=== PATIENT | male | born 1970 | race Caucasian/White ===

== ENCOUNTER 2016-10-01 10:34 | Emergency (ER) | payer BC ==
[2016-10-01 10:50] LABS: Glucose,Whole Blood 110 mg/dL (75-99)
[2016-10-01 11:15] LABS: Basophils # (A) 0.1 k/uL (0-0.2); Basophils % (A) 1 %; CH 31.2; CHCM 35.1; Eosinophils # (A) 0.3 k/uL (0-0.7); Eosinophils % (A) 5 %; HCT 46.3 % (39.0-53.0); HDW 2.97; HGB 16.7 gm/dL (13.0-17.5); Luc # (Auto) 0.26; Luc % (Auto) 4; Lymphocytes % (A) 30 %; MCH 32.1 pg (25.0-35.0); MCV 89.3 fL (80.0-100.0); Mean Platelet Volume 6.7; Monocytes # (A) 0.4 k/uL (0-1.0); Monocytes % (A) 6 %; Neutrophils # (A) 3.6 k/uL (1.3-7.7); Neutrophils % (A) 54 %; RBC 5.18 m/uL (4.30-5.90); WBC 6.7 k/uL (3.8-10.6); WBC (Perox) 6.61
[2016-10-01] MEDS ORDERED: methylPREDNISolone SOD SUCCI 125 MG/2 ML VIAL IV STA (11:15)
--- NOTE | 2016-10-01 11:15 | ED ---
General Adult HPI - General Chief complaint: Neuro Symptoms/Deficit Stated complaint: left leg numbness, heavyness Time Seen by Provider: 10/01/16 10:44 Source: patient Mode of arrival: wheelchair Limitations: no limitations - History of Present Illness Initial comments: This 45-year-old white male presents with a complaint of some left leg numbness and weakness. He states that this started approximately 2 days ago. He states that it initially started with numbness. He now is having to drag his left leg as it is weak and it is difficult for him to ambulate. He has had occasional back stiffness but no severe pain. He states that his right leg is felt somewhat numb minimally at times but nothing like the left leg. He denies any actual injuries. He denies any previous similar incidents. He denies any previous back or neck issues. He denies any bowel or bladder abnormalities. No fevers or chills. No other complaints or modifying factors. He did see his chiropractor this morning and was sent to the ER for further evaluation. He denies any problems with any upper extremity numbness or weakness. - Related Data Home Medications Medication Instructions Recorded Confirmed Atorvastatin [Lipitor] 10 mg PO DAILY 10/01/16 10/01/16 Loratadine [Claritin] 10 mg PO DAILY 10/01/16 10/01/16 Previous Rx's Medication Instructions Recorded Hydrocodone/Acetaminophen [Caney 1 - 2 each PO Q4HR PRN #20 tab 10/01/16 5-325] predniSONE 20 mg PO TID #15 tab 10/01/16 Allergies Allergy/AdvReac Type Severity Reaction Status Date / Time No Known Allergies Allergy Unverified 10/01/16 11:50 Review of Systems ROS Statement: Those systems with pertinent positive or pertinent negative responses have been documented in the HPI. ROS Other: All systems not noted in ROS Statement are negative. Past Medical History Past Medical History: Hyperlipidemia History of Any Multi-Drug Resistant Organisms: None Reported Past Surgical History: Ear Surgery, Orthopedic Surgery Additional Past Surgical History / Comment(s): vascectomy, toe surg Past Psychological History: No Psychological Hx Reported Smoking Status: Never smoker Past Alcohol Use History: Occasional Past Drug Use History: None Reported General Exam - General Exam Comments Initial Comments: GENERAL: The patient is well nourished and well hydrated. VITAL SIGNS: Heart rate, blood pressure, respiratory rate reviewed as recorded in nurse's notes. EYES: Pupils are round and reactive. Extraocular movements are intact. No conjunctival / lid redness or swelling. ENT: No external evidence of injury, swelling, or ecchymosis. Airway is patent. Throat is clear. NECK: Nontender. No swelling or evidence of injury. No subcutaneous emphysema. Trachea is midline. No thyroid mass. HEART: Regular rate and rhythm. Good peripheral pulses. LUNGS/CHEST: Breath sounds clear and equal bilaterally. No rales, rhonchi, or wheezes. No ecchymosis, subcutaneous emphysema, or tenderness. ABDOMEN: Abdomen soft without tenderness. No palpable masses or organomegaly. No peritoneal signs. No abdominal wall swelling or ecchymosis. EXTREMITIES: No extremity tenderness or swelling. No thoracolumbar tenderness. There is weakness noted to the left lower extremity. He can only minimally raise his left leg off the bed. There is decreased strength for the foot. There is subjective numbness to his left lower extremity. Strength is intact to upper extremities. NEUROLOGIC: Sensation is grossly intact. Cranial nerve exam reveals face is symmetrical, tongue is midline, speech is clear. SKIN: No abrasions or ecchymosis is noted. No induration or masses noted. PSYCHIATRIC: Alert and oriented. Appropriate behavior and judgment. Limitations: no limitations Course Vital Signs 10/01/16 10/01/16 10/01/16 10:46 10:50 13:01 Temperature 98 F 97.4 F L Pulse Rate 75 73 72 Respiratory 16 16 16 Rate Blood Pressure 130/77 130/77 114/66 O2 Sat by Pulse 99 100 98 Oximetry 10/01/16 10/01/16 14:05 15:34 Temperature 97.9 F 98.3 F Pulse Rate 75 72 Respiratory 18 18 Rate Blood Pressure 111/67 116/59 O2 Sat by Pulse 96 94 L Oximetry Medical Decision Making - Medical Decision Making The patient was seen and examined. All diagnostics are reviewed. Laboratories essentially within normal limits. The MRI of the lumbar spine does show multilevel degenerative changes. There also is evidence of a herniated disc at the L4-L5 region which could be accounting for the patient's symptomatology. Please see report for details. He is given some Solu-Medrol intravenously. Overall, it is felt as though he is stable for discharge. He does have an appointment with a physician at [facility] this Tuesday for evaluation of his back. He states that they apparently do specialize in the back. Our back specialist is apparently currently out of town but will be back this next week. It is felt as though he benefit from continued steroid medication and also will be covered for pain. Return parameters are discussed and he leaves in no apparent distress. - Lab Data Result diagrams: 10/01/16 10:50 10/01/16 10:50 Lab Results 10/01/16 10/01/16 10/01/16 Range/Units 10:48 10:50 10:50 WBC 6.7 (3.8-10.6) k/uL RBC 5.18 (4.30-5.90) m/uL Hgb 16.7 (13.0-17.5) gm/dL Hct 46.3 (39.0-53.0) % MCV 89.3 (80.0-100.0) fL MCH 32.1 (25.0-35.0) pg MCHC 36.0 (31.0-37.0) g/dL RDW 14.0 (11.5-15.5) % Plt Count 199 (150-450) k/uL Neutrophils % 54 % Lymphocytes % 30 % Monocytes % 6 % Eosinophils % 5 % Basophils % 1 % Neutrophils # 3.6 (1.3-7.7) k/uL Lymphocytes # 2.0 (1.0-4.8) k/uL Monocytes # 0.4 (0-1.0) k/uL Eosinophils # 0.3 (0-0.7) k/uL Basophils # 0.1 (0-0.2) k/uL PT (9.0-12.0) sec INR (<1.1) APTT (22.0-30.0) sec Sodium 143 (137-145) mmol/L Potassium 4.6 (3.5-5.1) mmol/L Chloride 108 H (98-107) mmol/L Carbon Dioxide 22 (22-30) mmol/L Anion Gap 13 mmol/L BUN 23 H (9-20) mg/dL Creatinine 0.90 (0.66-1.25) mg/dL Est GFR (MDRD) Af Amer >60 (>60 ml/min/1.73 sqM) Est GFR (MDRD) Non-Af >60 (>60 ml/min/1.73 sqM) Glucose 110 H (74-99) mg/dL POC Glucose (mg/dL) 110 H (75-99) mg/dL POC Glu Emergency Room Registered Nurse ID Lucita Ware Calcium 9.6 (8.4-10.2) mg/dL Total Bilirubin 0.7 (0.2-1.3) mg/dL AST 57 (17-59) U/L ALT 97 H (21-72) U/L Alkaline Phosphatase 80 (38-126) U/L Total Protein 7.2 (6.3-8.2) g/dL Albumin 4.6 (3.5-5.0) g/dL 10/01/16 Range/Units 10:50 WBC (3.8-10.6) k/uL RBC (4.30-5.90) m/uL Hgb (13.0-17.5) gm/dL Hct (39.0-53.0) % MCV (80.0-100.0) fL MCH (25.0-35.0) pg MCHC (31.0-37.0) g/dL RDW (11.5-15.5) % Plt Count (150-450) k/uL Neutrophils % % Lymphocytes % % Monocytes % % Eosinophils % % Basophils % % Neutrophils # (1.3-7.7) k/uL Lymphocytes # (1.0-4.8) k/uL Monocytes # (0-1.0) k/uL Eosinophils # (0-0.7) k/uL Basophils # (0-0.2) k/uL PT 11.2 (9.0-12.0) sec INR 1.1 (<1.1) APTT 24.6 (22.0-30.0) sec Sodium (137-145) mmol/L Potassium (3.5-5.1) mmol/L Chloride (98-107) mmol/L Carbon Dioxide (22-30) mmol/L Anion Gap mmol/L BUN (9-20) mg/dL Creatinine (0.66-1.25) mg/dL Est GFR (MDRD) Af Amer (>60 ml/min/1.73 sqM) Est GFR (MDRD) Non-Af (>60 ml/min/1.73 sqM) Glucose (74-99) mg/dL POC Glucose (mg/dL) (75-99) mg/dL POC Glu Emergency Room Registered Nurse ID Calcium (8.4-10.2) mg/dL Total Bilirubin (0.2-1.3) mg/dL AST (17-59) U/L ALT (21-72) U/L Alkaline Phosphatase (38-126) U/L Total Protein (6.3-8.2) g/dL Albumin (3.5-5.0) g/dL Disposition Clinical Impression: Lumbar disc herniation with radiculopathy Disposition: HOME SELF-CARE Condition: Fair Prescriptions: Hydrocodone/Acetaminophen [Caney 5-325] 1 - 2 each PO Q4HR PRN #20 tab PRN Reason: Pain predniSONE 20 mg PO TID #15 tab Referrals: Darrell Rodriguez MD [Primary Care Provider] - 1-2 days Vee Fletcher DO [Doctor of Osteopathic Medicine] - 10/04/16 Time of Disposition: 15:52 Decision Date: 10/01/16 Decision Time: 15:52
[2016-10-01 11:23] LABS: INR 1.1 (<1.1); Partial Thromboplastin Time 24.6 sec (22.0-30.0); Prothrombin Time 11.2 sec (9.0-12.0)
[2016-10-01 11:27] LABS: ALT 97 U/L (21-72); AST 57 U/L (17-59); Alkaline Phosphatase 80 U/L (38-126); Anion Gap 13 mmol/L; Blood Urea Nitrogen 23 mg/dL (9-20); Calcium 9.6 mg/dL (8.4-10.2); Carbon Dioxide 22 mmol/L (22-30); Chloride 108 mmol/L (98-107); Glucose 110 mg/dL (74-99); Non-African American GFR(MDRD) >60 (>60 ml/min/1.73 sqM); Potassium 4.6 mmol/L (3.5-5.1); Sodium 143 mmol/L (137-145); Total Bilirubin 0.7 mg/dL (0.2-1.3); Total Protein 7.2 g/dL (6.3-8.2)
--- NOTE | 2016-10-01 15:28 | MR ---
EXAMINATION TYPE: MR lumbar spine wo/w con DATE OF EXAM: 10/01/2016 COMPARISON: NONE HISTORY: Lt leg weakness/numbness x 3 days, no trauma TECHNIQUE: Multiplanar, multisequence images of the lumbar spine is performed without and with IV contrast, util izing 20 mL intravenous MultiHance FINDINGS: Sagittal images of the lumbar spine show vertebral body heights and alignment to appear sat isfactory. There is disc desiccation with mild to moderate disc space narrowing L5-S1 level otherwise the intervertebral discs demonstrate normal heights and hydration. There is posterior disc herniatio n L5-S1 level on sagittal images. The conus medullaris is normal in position and signal ending at in ferior L1 level. The bone marrow signal intensity is within normal limits. No suspicious postcontras t enhancement is seen. No significant spurring is noted. Axial images show the T12-L1 and L1-L2 levels to appear within normal limits. Axial images L2-L3 level show mild broad based posterior disc protrusion minimally effacing anterior thecal sac on axial image 20, bilateral neural foramina are patent. Axial images at L3-L4 level are felt within normal limits. Axial images at L4-L5 level show left foraminal disc protrusion on axial image 9 encroaching upon inf erior margin of right L4 nerve on sagittal image 3 not as pronounced on axial images. Right-sided edmar ral foramen is patent. Spinal canal is preserved. Axial images at L5-S1 level shows central disc protrusion effacing anterior thecal sac. There is mild facet degenerative changes bilaterally. There is mild right greater than left anterior inferior neur al foraminal narrowing. No suspicious retroperitoneal findings are identified. IMPRESSION: Multilevel degenerative changes in the lumbar spine as detailed above, most prominent fin dings L5-S1 level. Note is made of left foraminal disc herniation L4-L5 level encroaching near left L 4 nerve and might be accounting for patient's symptoms.
--- NOTE | 2016-10-01 15:55 | ED ---
Medical Decision Making - Lab Data Result diagrams: 10/01/16 10:50 10/01/16 10:50 Lab Results 10/01/16 10/01/16 10/01/16 Range/Units 10:48 10:50 10:50 WBC 6.7 (3.8-10.6) k/uL RBC 5.18 (4.30-5.90) m/uL Hgb 16.7 (13.0-17.5) gm/dL Hct 46.3 (39.0-53.0) % MCV 89.3 (80.0-100.0) fL MCH 32.1 (25.0-35.0) pg MCHC 36.0 (31.0-37.0) g/dL RDW 14.0 (11.5-15.5) % Plt Count 199 (150-450) k/uL Neutrophils % 54 % Lymphocytes % 30 % Monocytes % 6 % Eosinophils % 5 % Basophils % 1 % Neutrophils # 3.6 (1.3-7.7) k/uL Lymphocytes # 2.0 (1.0-4.8) k/uL Monocytes # 0.4 (0-1.0) k/uL Eosinophils # 0.3 (0-0.7) k/uL Basophils # 0.1 (0-0.2) k/uL PT (9.0-12.0) sec INR (<1.1) APTT (22.0-30.0) sec Sodium 143 (137-145) mmol/L Potassium 4.6 (3.5-5.1) mmol/L Chloride 108 H (98-107) mmol/L Carbon Dioxide 22 (22-30) mmol/L Anion Gap 13 mmol/L BUN 23 H (9-20) mg/dL Creatinine 0.90 (0.66-1.25) mg/dL Est GFR (MDRD) Af Amer >60 (>60 ml/min/1.73 sqM) Est GFR (MDRD) Non-Af >60 (>60 ml/min/1.73 sqM) Glucose 110 H (74-99) mg/dL POC Glucose (mg/dL) 110 H (75-99) mg/dL POC Glu Garage Mechanic ID McDaid, Lucita Calcium 9.6 (8.4-10.2) mg/dL Total Bilirubin 0.7 (0.2-1.3) mg/dL AST 57 (17-59) U/L ALT 97 H (21-72) U/L Alkaline Phosphatase 80 (38-126) U/L Total Protein 7.2 (6.3-8.2) g/dL Albumin 4.6 (3.5-5.0) g/dL 10/01/16 Range/Units 10:50 WBC (3.8-10.6) k/uL RBC (4.30-5.90) m/uL Hgb (13.0-17.5) gm/dL Hct (39.0-53.0) % MCV (80.0-100.0) fL MCH (25.0-35.0) pg MCHC (31.0-37.0) g/dL RDW (11.5-15.5) % Plt Count (150-450) k/uL Neutrophils % % Lymphocytes % % Monocytes % % Eosinophils % % Basophils % % Neutrophils # (1.3-7.7) k/uL Lymphocytes # (1.0-4.8) k/uL Monocytes # (0-1.0) k/uL Eosinophils # (0-0.7) k/uL Basophils # (0-0.2) k/uL PT 11.2 (9.0-12.0) sec INR 1.1 (<1.1) APTT 24.6 (22.0-30.0) sec Sodium (137-145) mmol/L Potassium (3.5-5.1) mmol/L Chloride (98-107) mmol/L Carbon Dioxide (22-30) mmol/L Anion Gap mmol/L BUN (9-20) mg/dL Creatinine (0.66-1.25) mg/dL Est GFR (MDRD) Af Amer (>60 ml/min/1.73 sqM) Est GFR (MDRD) Non-Af (>60 ml/min/1.73 sqM) Glucose (74-99) mg/dL POC Glucose (mg/dL) (75-99) mg/dL POC Glu Garage Mechanic ID Calcium (8.4-10.2) mg/dL Total Bilirubin (0.2-1.3) mg/dL AST (17-59) U/L ALT (21-72) U/L Alkaline Phosphatase (38-126) U/L Total Protein (6.3-8.2) g/dL Albumin (3.5-5.0) g/dL Disposition Clinical Impression: Lumbar disc herniation with radiculopathy Disposition: HOME SELF-CARE Condition: Fair Instructions: Lumbar Radiculopathy (ED) Prescriptions: Hydrocodone/Acetaminophen [Winfred 5-325] 1 - 2 each PO Q4HR PRN #20 tab PRN Reason: Pain predniSONE 20 mg PO TID #15 tab Referrals: Vee Fletcher DO [Doctor of Osteopathic Medicine] - 10/04/16 Darrell Rodriguez MD [Primary Care Provider] - 1-2 days
[2016-10-01 16:06] VITALS: BP 110/64; PULSE 77; RESP 16; TEMP 97.2
== END 2016-10-01 16:16 | disposition home or self-care (01) ==
LOC: EC 10:34
DX: M51.16 Intervertebral disc disorders with radiculopathy, lumbar region (principal); M47.26 Other spondylosis with radiculopathy, lumbar region; E78.5 Hyperlipidemia, unspecified; Z79.899 Other long term (current) drug therapy
CPT/HCPCS: 99284; 96374; 36415; 93005; 80053; 85025; 85610; 85730; 72158; J2930; A9577

== ENCOUNTER → 2022-01-13 | Outpatient (CLI) | payer BC ==
--- NOTE | 2022-01-13 12:40 | US ---
EXAMINATION TYPE: US groin LT DATE OF EXAM: 01/13/2022 COMPARISON: NONE CLINICAL HISTORY: K46.9 HERNIA. Left groin pain Technique:. Targeted grayscale ultrasound of the left groin FINDINGS: Left groin: 4.2cm area seen medial to iliac vessels, increases with valsalva IMPRESSION: Left groin hernia containing fat.
== END | disposition home or self-care (01) ==
LOC: RADUSWWP 11:56
PROVIDERS: ATTEND Pediatrics
DX: K46.9 Unspecified abdominal hernia without obstruction or gangrene (principal)

== ENCOUNTER → 2022-02-02 | Outpatient (CLI) | payer BC | END | disposition home or self-care (01) | LOC: LABWHC1 10:22 | PROVIDERS: ATTEND Surgery Plastic and Reconstructive Surgery | DX: I11.9 Hypertensive heart disease without heart failure (principal) | CPT/HCPCS: 36415; 93005 ==

== ENCOUNTER → 2022-02-12 | Outpatient (CLI) | payer BC ==
--- NOTE | 2022-02-12 11:28 | CT ---
EXAMINATION TYPE: CT angio chest DATE OF EXAM: 02/12/2022 COMPARISON: None HISTORY: Thoracic Aortic Aneurysm CT DLP: 2290.7 mGycm CONTRAST: CTA thoracic aorta with 3-D reconstruction is performed and without and with IV Contrast, patient inj ected with 100 mL of Isovue 370. Contrast CTA of the thoracic aorta was performed from the lung apex through the upper abdomen. 3D re construction imaging obtained at a separate workstation. CT Chest: THORACIC AORTA: No evidence for thoracic aortic aneurysm. Mild atheromatous changes seen. There is n o evidence for dissection or periaortic collection. LUNGS: The lungs are clear and free of infiltrate or atelectasis. No pulmonary nodule or mass is det ected. No pleural effusion or CT evidence of interstitial lung disease. MEDIASTINUM: No evidence for mediastinal hematoma. The heart is not enlarged. No evidence for med iastinal mass or adenopathy. HILAR STRUCTURES: No evidence for mass. No hilar adenopathy is appreciated. OTHER: No significant abnormality. IMPRESSION- No evidence for thoracic aortic aneurysm.
== END | disposition home or self-care (01) ==
LOC: RADCTMAIN 09:19
PROVIDERS: ATTEND Internal Medicine Interventional Cardiology
DX: I71.20 Thoracic aortic aneurysm, without rupture, unspecified (principal)
CPT/HCPCS: 71275; Q9967

== ENCOUNTER → 2022-03-08 | Outpatient (CLI) | payer BC ==
[2022-03-08 15:04] LABS: Basophils # (A) 0.07 X 10*3/uL (0.00-0.10); Basophils % (A) 1.3 %; Eosinophils # (A) 0.29 X 10*3/uL (0.04-0.35); Eosinophils % (A) 5.4 %; HCT 48.2 % (39.6-50.0); HGB 15.7 g/dL (13.0-17.0); Immature Grans, Automated 0.4 %; Lymphocytes # (A) 1.87 X 10*3/uL (0.90-5.00); Lymphocytes % (A) 34.5 %; MCH 29.1 pg (27.0-32.0); MCHC 32.6 g/dL (32.0-37.0); MCV 89.4 fL (80.0-97.0); Mean Platelet Volume 10.3 fL (9.5-12.2); Monocytes # (A) 0.64 X 10*3/uL (0.20-1.00); Monocytes % (A) 11.8 %; NRBC Per 100 WBC 0 /100 WBCS (0.0-0.0); Neutrophils # (A) 2.53 X 10*3/uL (1.80-7.70); Neutrophils % (A) 46.6 %; Platelet Count 152 X 10*3/uL (140-440); RBC 5.39 X 10*6/uL (4.40-5.60); RDW 13.6 % (11.5-14.5); WBC 5.42 X 10*3/uL (4.50-10.00)
[2022-03-08 15:48] LABS: ALT 52 U/L (10-49); AST 38 U/L (14-35); Albumin 4.6 g/dL (3.8-4.9); Albumin/Globulin Ratio 1.92 (1.60-3.17); Alkaline Phosphatase 63 U/L (41-126); Bilirubin, Conjugated <0.20 mg/dL (0.20-0.40); Globulin 2.4 g/dL (1.6-3.3)
== END | disposition home or self-care (01) ==
LOC: LABWHC1 08:21
PROVIDERS: ATTEND Psychiatry & Neurology Neurology
DX: G35 Multiple sclerosis (principal)
CPT/HCPCS: 36415; 80076; 85025

== ENCOUNTER → 2022-03-11 | Day surgery (SDC) | payer BC ==
[2022-03-08 16:11] VITALS: BMI 37.2
[~2022-03-11] MED LIST: ACETAMINOPHEN TAB 500 MG TAB PO STA; BUPIVACAIN-EPI 0.25%-1:200,000 30 ML VIAL SQ ONE; DEXAMETHASONE SOD PHOSPHATE 4 MG/ML 1 ML VIAL IV ONE; GABAPENTIN 300 MG CAP PO STA; GLYCOPYRROLATE 0.2 MG/ML 2 ML VIAL ONE; HEPARIN SODIUM,PORCINE/PF 5,000 UNIT/0.5 ML SYRINGE SQ PRN; HYDROmorphone 0.5 MG/0.5 ML SYRINGE IVP ONE; HYDROmorphone 0.5 MG/0.5 ML SYRINGE IVP PRN; KETOROLAC 15 MG/ML 1 ML VIAL IVP ONE; KETOROLAC 15 MG/ML 1 ML VIAL IVP PRN; LACTATED RINGERS 1,000 ML IV ONE; LACTATED RINGERS 1,000 ML IV SCH; LIDOCAINE 1% (10MG/ML) FOR IV START INTRADERMA PRN; LIDOCAINE 2% INJ 20 MG/ML (2 ML VIAL) ONE; MELOXICAM 7.5 MG TAB PO SCH; MIDAZOLAM 2 MG/2 ML VIAL IV PRN; MIDAZOLAM 2 MG/2 ML VIAL ONE; NEOSTIGMINE 1 MG/ML 10 ML VIAL ONE; ONDANSETRON 4 MG/2 ML VIAL IVP ONE; PROPOFOL 10 MG/ML 20 ML VIAL IV ONE; ROCURONIUM 10 MG/ML (5 ML VIAL) IV ONE; SUCCINYLCHOLINE CHLORIDE 200 MG/10 ML VIAL IV ONE; TAMSULOSIN 0.4 MG CAP.ER.24H PO ONE; TAMSULOSIN 0.4 MG CAP.ER.24H PO PRN; TAMSULOSIN 0.4 MG CAP.ER.24H PO STA; ceFAZolin 3 GM in SODIUM CHLORIDE 0.9% 100 ML IVPB PRN; fentaNYL (PF) 50 MCG/ML 2 ML AMP ONE; oxyCODONE-APAP 7.5-325MG 1 EACH TAB PO PRN
--- NOTE | 2022-03-11 11:10 | P.GSHP ---
History of Present Illness H&P Date: 03/11/22 CHIEF COMPLAINT: Inguinal hernia, left HISTORY OF PRESENT ILLNESS: The patient is a 51-year-old male who presents with a history of swelling and pain along the left groin. He's noted increased swelling including pain of the area. Now he presents for repair of his inguinal hernia. PAST MEDICAL HISTORY: Please see list. PAST SURGICAL HISTORY: Please see list. MEDICATIONS: Please see list. ALLERGIES: Please see list. SOCIAL HISTORY: No illicit drug use FAMILY HISTORY: No reports of Crohn disease or ulcerative colitis. REVIEW OF ORGAN SYSTEMS: CONSTITUTIONAL: No reports of fevers or chills. No reports of weight loss despite prior attempts. GI: Denies any blood in stools or constipation. PHYSICAL EXAM: VITAL SIGNS: Stable GENERAL: Well-developed pleasant male in no acute distress. HEENT: No scleral icterus. Extraocular movements grossly intact. Moist buccal mucosa. NECK: Supple without lymphadenopathy. CHEST: Unlabored respirations. Equal bilateral excursions. CARDIOVASCULAR: Regular rate and rhythm. Distal 2+ pulses. ABDOMEN: Soft, nondistended. No peritoneal signs. Palpable defect of the left groin. MUSCULOSKELETAL: No clubbing, cyanosis, or edema. ASSESSMENT: 1. Inguinal hernia, left PLAN: 1. Recommend proceeding with a robotic inguinal repair with mesh with possible bilateral approach. 2. Benefits and risks of surgical intervention was discussed including possibility of open technique. 3. DVT prophylaxis. 4. Antibiotic prophylaxis. 5. Non narcotic pain management including abdominal wall block described 6. Blood sugar glucose described. 7. Weight loss management described. 8. Strict tobacco cessation education done prior to surgery including postoperatively. 9. Recommend urine nicotine testing Past Medical History Past Medical History: Hyperlipidemia Additional Past Medical History / Comment(s): MS. GOUT History of Any Multi-Drug Resistant Organisms: None Reported Past Surgical History: Cholecystectomy, Ear Surgery, Orthopedic Surgery Additional Past Surgical History / Comment(s): vascectomy, RT MIDDLE toe surg, Past Anesthesia/Blood Transfusion Reactions: No Reported Reaction Smoking Status: Never smoker - Past Family History Mother Family Medical History: No Reported History Medications and Allergies Home Medications Medication Instructions Recorded Confirmed Type Atorvastatin [Lipitor] 10 mg PO DAILY 10/01/16 03/08/22 History Finasteride [Proscar] 5 mg PO HS 03/08/22 03/08/22 History Gabapentin 800 mg PO TID 03/08/22 03/08/22 History Ibuprofen [Motrin] 800 mg PO Q8H 03/08/22 03/08/22 History Teriflunomide [Aubagio] 14 mg PO W/LUNCH 03/08/22 03/08/22 History allopurinoL 100 mg PO Q2D 03/08/22 03/08/22 History Allergies Allergy/AdvReac Type Severity Reaction Status Date / Time No Known Allergies Allergy Unverified 03/08/22 15:57
[2022-03-11 16:06] LABS: Basophils # (A) 0.1 k/uL (0-0.2); Basophils % (A) 1 %; Eosinophils # (A) 0.3 k/uL (0-0.7); Eosinophils % (A) 4 %; HCT 44.9 % (39.0-53.0); HGB 15.6 gm/dL (13.0-17.5); Lymphocytes # (A) 1.8 k/uL (1.0-4.8); Lymphocytes % (A) 28 %; MCH 29.9 pg (25.0-35.0); MCHC 34.7 g/dL (31.0-37.0); Mean Platelet Volume 7.8; Monocytes # (A) 0.5 k/uL (0-1.0); Monocytes % (A) 8 %; Neutrophils # (A) 3.6 k/uL (1.3-7.7); Neutrophils % (A) 56 %; Platelet Count 167 k/uL (150-450); RBC 5.22 m/uL (4.30-5.90); RDW 13.5 % (11.5-15.5); WBC 6.5 k/uL (3.8-10.6)
[2022-03-11 16:15] LABS: ALT 55 U/L (4-49); AST 46 U/L (17-59); African American GFR (CKD) >90 (>60 ml/min/1.73 sqM); Albumin 4.5 g/dL (3.5-5.0); Alkaline Phosphatase 64 U/L (38-126); Anion Gap 7 mmol/L; Blood Urea Nitrogen 21 mg/dL (9-20); Calcium 9.3 mg/dL (8.4-10.2); Carbon Dioxide 25 mmol/L (22-30); Chloride 108 mmol/L (98-107); Glucose 84 mg/dL (74-99); Non-African American GFR(CKD) >90 (>60 ml/min/1.73 sqM); Potassium 4.1 mmol/L (3.5-5.1); Sodium 140 mmol/L (137-145); Total Bilirubin 0.6 mg/dL (0.2-1.3); Total Protein 7.1 g/dL (6.3-8.2)
[2022-03-11 20:23] VITALS: TEMP 98.2
--- NOTE | 2022-03-11 20:33 | P.OP ---
Date of Procedure: 03/11/22 Description of Procedure: SURGEON: TIERRA PELAEZ MD PREOPERATIVE DIAGNOSES: 1. Initial left inguinal hernia 2. Multiple sclerosis 3. Gout 4. Hyperlipidemia 5. Morbid obesity due to excess calories, BMI 35.8 6. Obstructive prostate disorder POSTOPERATIVE DIAGNOSES: 1. Initial left inguinal hernia, indirect 3 cm, incarcerated 2. Multiple sclerosis 3. Gout 4. Hyperlipidemia 5. Morbid obesity due to excess calories, BMI 35.8 6. Obstructive prostate disorder OPERATION: 1. Robotic assisted da Ira Xi laparoscopic repair of left inguinal hernia repair with ventralight ST mesh, 11.4 cm. 2. Excision of subfascial left inguinal lipoma 6 x 5 cm Anesthesia: GETA, local Estimated Blood Loss (ml): 5 Pathology: other (Left inguinal sac and lipoma) Condition: stable Disposition: floor COMPLICATIONS: None. Operative Findings: 1. Large left inguinal indirect hernia, 3 cm 2. Right groin unremarkable 3. Right upper quadrant omental to abdominal wall adhesions 4. Incarcerated fat-containing left inguinal hernia with lipoma INDICATIONS: The patient is a 51-year-old gentleman who presents with history of left inguinal hernia. Now presents for definitive surgical intervention. Laparoscopic versus open and robotic approaches were discussed. Strict tobacco cessation and counseling was performed including increased risk for postoperative complications and infection due to tobacco abuse. Benefits and risks including bleeding, infection, injury to the vas deferens as well as sterility and chronic groin pain were reviewed. Placement of mesh was also described. Informed consent was obtained. DESCRIPTION: In the preoperative area, the patient was marked with indelible marker along the left groin. The patient was brought to the operating room and laid in supine position. After general induction, the abdomen had been prepped and draped in standard sterile fashion. Ioban draping was also placed. Prior to incision, a timeout protocol was confirmed with surgical team regarding patient's name including procedures to be performed and location along the left groin. Initial positioning for the robotic assisted ports were selected whereby 20 cm superior to the target anatomy, 0 degree 5 mm laparoscopic trocar entry was performed at the left upper quadrant. The abdomen was insufflated to 15 mmHg which he had tolerated well. Diagnostic laparoscopy demonstrated right lower quadrant adhesions omentum to the abdominal wall undisturbed. Additionally the sigmoid colon was incarcerated into the left groin with an indirect left inguinal hernia over 2 cm in size. The right groin was unremarkable. Next, along the epigastrium, 8 mm robot trocar was placed. An 8-mm robotic trocar was placed under direct visualization at the right upper quadrant. The 5 mm port was exchanged for a 8 mm trocar. All trocars were positioned between 8 to 10-cm apart from each other. The patient was placed in steep reverse Trendelenburg position, 14. The Angel[employer] XI robot was primed, draped, prepared for docking along the upper abdomen of the patient. I then went to the [employer] console. The real estate administrative assistant was at bedside for exchange of the robot arms and equipment. At the left groin, over 3 cm indirect inguinal hernia was identified. The hernia sac was evaginated whereby the peritoneum was scored using Endo scissors with cautery. The hernia lipoma, subfascial 6 cm x 5 cm was transected using Vessel sealer. Once completely reduced into the abdominal cavity, the peritoneal sac of the hernia was identified. The sac was resected and then passed off for further pathological analysis. The size of the hernia defect was 3 cm with intraoperative films obtained. Using absorbable 2-0 VLOC, the peritoneal defect of the left inguinal hernia site was closed using a pursestring suture. The defect was found to be completely closed with complete reduction of the left inguinal hernia was confirmed. As an onlay, an 11.[address] mesh by [employer] was cut in half and entered into the abdominal cavity via the 8 mm trocar. The mesh was tacked to the pelvis using absorbable 2-0 VLOC x 9-inch length sutures. The robot was undocked from the patient's bedside. I then rescrubbed into the case. Insufflation was released from the abdominal cavity and all instruments were removed from the abdominal cavity. Additional palm pressure was applied along the left groin as well as releasing any air along the scrotum and left groin. The rest of incisions were reapproximated using 4-0 Monocryl in a running subcuticular fashion. Incisions were cleansed using dilute hydrogen peroxide. Liquid glue was applied to the skin. At the end of the procedure, the needle, sponge and instrument counts had been verified correct by the surgical services director. The patient had tolerated the procedure well and was taken to the postanesthesia care unit in stable condition. Intraoperative findings were described to the patient's family who were pleased with the level of care. Plan - Discharge Summary Discharge Rx Participant: Yes New Discharge Prescriptions: New Tamsulosin [Flomax] 0.4 mg PO DAILY #5 cap Simethicone [Gas-X] 125 mg PO AC-TID PRN #20 capsule PRN Reason: Pain Acetaminophen Tab [Tylenol Tab] 1,000 mg PO Q6HR PRN #30 tablet PRN Reason: Pain Continue Atorvastatin [Lipitor] 10 mg PO DAILY Gabapentin 800 mg PO TID Finasteride [Proscar] 5 mg PO HS Teriflunomide [Aubagio] 14 mg PO W/LUNCH Ibuprofen [Motrin] 800 mg PO Q8H allopurinoL 100 mg PO Q2D Discharge Medication List Atorvastatin [Lipitor] 10 mg PO DAILY 10/01/16 [History] Finasteride [Proscar] 5 mg PO HS 03/08/22 [History] Gabapentin 800 mg PO TID 03/08/22 [History] Ibuprofen [Motrin] 800 mg PO Q8H 03/08/22 [History] Teriflunomide [Aubagio] 14 mg PO W/LUNCH 03/08/22 [History] allopurinoL 100 mg PO Q2D 03/08/22 [History] Acetaminophen Tab [Tylenol Tab] 1,000 mg PO Q6HR PRN #30 tablet 03/11/22 [Rx] Simethicone [Gas-X] 125 mg PO AC-TID PRN #20 capsule 03/11/22 [Rx] Tamsulosin [Flomax] 0.4 mg PO DAILY #5 cap 03/11/22 [Rx] Follow up Appointment(s)/Referral(s): Tierra Pelaez MD [STAFF PHYSICIAN] - 03/16/22 (Telehealth) Patient Instructions/Handouts: Laparoscopic Herniorrhaphy (IP), Inguinal Hernia (GEN), Inguinal Hernia Repair (DC) Activity/Diet/Wound Care/Special Instructions: May shower. May not return to work until Apr, pending clearance from your surgeon. No bathtub soaks for 2 weeks, Mar 25. No lifting over 10 pounds for 4 weeks, Apr 13, 2022 Use ice along incisions for today to prevent swelling. Take tylenol, aleve/ibuprofen, simethicone scheduled for 3 days for best pain relief Discharge Disposition: HOME SELF-CARE
--- NOTE | 2022-03-11 20:35 | P.PN ---
Progress Note - Text Progress Note Date: 03/11/22 To Whom It May Concern: Leandro Segundo is under my general surgical care. He may return to work Apr, pending clearance. He is under lifting and exertional restrictions of 10 pounds for 4 weeks. Regards, Tierra Pelaez M.D., FACS
[2022-03-11 21:56] VITALS: BP 113/56; PULSE 81; RESP 18
--- NOTE | 2022-03-12 11:18 | P.ANPRN ---
Procedure Note - Anesthesia - Nerve Block Performed Bilateral Transversus Abdominis Single Time Out Performed: Yes Date of Procedure: 03/11/22 Procedure Start Time: 16:12 Procedure Stop Time: 16:25 Location of Patient: PreOp Indication: Acute Post-Operative Pain, Requested by Surgeon Sedation Type: Sedate with meaningful contact maintained Preparation: Sterile Prep Position: Supine Needle Types: Pajunk Needle Gauge: 21 Ultrasound used to visualize needle placement: Yes Ultrasound used to observe medication spread: Yes Blood Aspirated: No Pain Paresthesia on Injection Noted: No Resistance on Injection: Normal Image Stored and Saved: Yes Events: Uneventful and Well Tolerated (Ropivacaine 0.5% 15 mL plus normal saline 10 mL plus dexamethasone 4 mg given bilaterally at L1)
--- NOTE | 2022-03-12 12:31 | P.PN ---
Progress Note - Text Progress Note Date: 03/12/22 Patient contacted at home. He is doing very well. He is urinating spontaneously. No urinary retention. Pain is well-controlled. Alternating between ibuprofen and Tylenol described. Patient may take his prescription ibuprofen 800 mg instead of 600 mg dose. Telehealth follow-up Tuesday 8 AM to 9 AM reviewed. All questions addressed.
== END | disposition home or self-care (01) ==
LOC: OR 14:00
PROVIDERS: ATTEND Surgery Plastic and Reconstructive Surgery
DX: K40.90 Unilateral inguinal hernia, without obstruction or gangrene, not specified as recurrent (principal); G89.18 Other acute postprocedural pain; G35 Multiple sclerosis; M10.9 Gout, unspecified; E78.5 Hyperlipidemia, unspecified; E66.01 Morbid (severe) obesity due to excess calories; N42.89 Other specified disorders of prostate; Z90.49 Acquired absence of other specified parts of digestive tract; Z98.890 Other specified postprocedural states; Z68.35 Body mass index [BMI] 35.0-35.9, adult; Z79.1 Long term (current) use of non-steroidal anti-inflammatories (NSAID); Z79.899 Other long term (current) drug therapy
CPT/HCPCS: 64486; 80053; 85025; 49650; C1781; J2250; J0330; J1100; J2710; J0690; J2405; J3010; J1885; J2704; J1170; J1644; J2001; 88302

== ENCOUNTER 2023-04-06 08:09 | Day surgery (SDC) | payer BC ==
[2023-03-31 11:18] VITALS: BMI 37.2
--- NOTE | 2023-04-06 07:57 | P.GSHP ---
History of Present Illness H&P Date: 04/06/23 CHIEF COMPLAINT: Colon screen HISTORY OF PRESENT ILLNESS: The patient is a 52-year-old male who presents for colon screen. Lower endoscopy was offered for further evaluation and management. PAST MEDICAL HISTORY: Please see list. PAST SURGICAL HISTORY: Please see list. MEDICATIONS: Please see list. ALLERGIES: Please see list. SOCIAL HISTORY: No illicit drug use FAMILY HISTORY: No reports of Crohn disease or ulcerative colitis. REVIEW OF ORGAN SYSTEMS: CONSTITUTIONAL: No reports of fevers or chills. PHYSICAL EXAM: VITAL SIGNS: Stable GENERAL: Well-developed pleasant in no acute distress. HEENT: No scleral icterus. Extraocular movements grossly intact. Moist buccal mucosa. NECK: Supple without lymphadenopathy. CHEST: Unlabored respirations. Equal bilateral excursions. CARDIOVASCULAR: Regular rate and rhythm. Distal 2+ pulses. ABDOMEN: Soft, nontender, nondistended. MUSCULOSKELETAL: No clubbing, cyanosis, or edema. ASSESSMENT: 1. Colon screen. PLAN: 1. Recommend proceeding with a lower endoscopy Past Medical History Past Medical History: Hyperlipidemia, Musculoskeletal Disorder, Sleep Apnea/CPAP/BIPAP Additional Past Medical History / Comment(s): ms ,cpap, heart murmur, left side leg weak sometime History of Any Multi-Drug Resistant Organisms: None Reported Past Surgical History: Cholecystectomy, Ear Surgery, Hernia Repair, Orthopedic Surgery Additional Past Surgical History / Comment(s): vascectomy, toe surg, Past Anesthesia/Blood Transfusion Reactions: No Reported Reaction Additional Past Anesthesia/Blood Transfusion Reaction / Comment(s): no blood transfusion Smoking Status: Never smoker - Past Family History Father Family Medical History: Cancer Additional Family Medical History / Comment(s): pancreatic Medications and Allergies Home Medications Medication Instructions Recorded Confirmed Type Atorvastatin [Lipitor] 10 mg PO DAILY 10/01/16 03/31/23 History Finasteride [Proscar] 5 mg PO HS 03/08/22 03/31/23 History Gabapentin 800 mg PO TID 03/08/22 03/31/23 History Ibuprofen [Motrin] 800 mg PO Q8H 03/08/22 03/31/23 History Teriflunomide [Aubagio] 14 mg PO W/LUNCH 03/08/22 03/31/23 History allopurinoL 100 mg PO Q2D 03/08/22 03/31/23 History Acetaminophen Tab [Tylenol Tab] 1,000 mg PO Q6HR PRN #30 tablet 03/11/22 03/31/23 Rx Simethicone [Gas-X] 125 mg PO AC-TID PRN #20 capsule 03/11/22 03/31/23 Rx Tamsulosin [Flomax] 0.4 mg PO DAILY #5 cap 03/11/22 03/31/23 Rx Cholecalciferol (Vitamin D3) 1,250 mcg PO DAILY 03/31/23 03/31/23 History [Vitamin D3] Loratadine 10 mg PO DAILY 03/31/23 03/31/23 History Allergies Allergy/AdvReac Type Severity Reaction Status Date / Time No Known Allergies Allergy Verified 03/11/22 15:09
[~2023-04-06 08:09] MED LIST changes: -ACETAMINOPHEN TAB 500 MG TAB PO STA; -BUPIVACAIN-EPI 0.25%-1:200,000 30 ML VIAL SQ ONE; -DEXAMETHASONE SOD PHOSPHATE 4 MG/ML 1 ML VIAL IV ONE; -GABAPENTIN 300 MG CAP PO STA; -GLYCOPYRROLATE 0.2 MG/ML 2 ML VIAL ONE; -HEPARIN SODIUM,PORCINE/PF 5,000 UNIT/0.5 ML SYRINGE SQ PRN; -HYDROmorphone 0.5 MG/0.5 ML SYRINGE IVP ONE; -HYDROmorphone 0.5 MG/0.5 ML SYRINGE IVP PRN; -KETOROLAC 15 MG/ML 1 ML VIAL IVP ONE; -KETOROLAC 15 MG/ML 1 ML VIAL IVP PRN; -LACTATED RINGERS 1,000 ML IV ONE; -LIDOCAINE 2% INJ 20 MG/ML (2 ML VIAL) ONE; -MELOXICAM 7.5 MG TAB PO SCH; -MIDAZOLAM 2 MG/2 ML VIAL IV PRN; -MIDAZOLAM 2 MG/2 ML VIAL ONE; -NEOSTIGMINE 1 MG/ML 10 ML VIAL ONE; -ONDANSETRON 4 MG/2 ML VIAL IVP ONE; -PROPOFOL 10 MG/ML 20 ML VIAL IV ONE; -ROCURONIUM 10 MG/ML (5 ML VIAL) IV ONE; -SUCCINYLCHOLINE CHLORIDE 200 MG/10 ML VIAL IV ONE; -TAMSULOSIN 0.4 MG CAP.ER.24H PO ONE; -TAMSULOSIN 0.4 MG CAP.ER.24H PO PRN; -TAMSULOSIN 0.4 MG CAP.ER.24H PO STA; -ceFAZolin 3 GM in SODIUM CHLORIDE 0.9% 100 ML IVPB PRN; -fentaNYL (PF) 50 MCG/ML 2 ML AMP ONE; -oxyCODONE-APAP 7.5-325MG 1 EACH TAB PO PRN
[2023-04-06 08:50] VITALS: TEMP 97
[2023-04-06] MEDS ORDERED: fentaNYL (PF) 50 MCG/ML 2 ML AMP ONE (09:16)
[2023-04-06] MEDS ORDERED: ONDANSETRON 4 MG/2 ML VIAL ONE (09:16)
[2023-04-06] MEDS ORDERED: PROPOFOL 10 MG/ML 20 ML VIAL IV ONE (09:16)
[2023-04-06] MEDS ORDERED: LIDOCAINE 1% INJ 10MG/ML (20 ML MDV) ONE (09:16)
[2023-04-06 10:04] VITALS: BP 117/74; PULSE 69; RESP 20
--- NOTE | 2023-04-06 10:37 | P.PCN ---
Date of Procedure: 04/06/23 Description of Procedure: PREOPERATIVE DIAGNOSIS: Colonoscopy screening. High-risk familial screening for colon cancer POSTOPERATIVE DIAGNOSIS: Colonoscopy screening. Diverticulosis, scattered. OPERATION: Colonoscopy to the cecum, ileocecal valve and appendiceal orifice. SURGEON: Tierra Pelaez MD. ANESTHESIA: MAC. INDICATIONS: The patient is a 52-year-old male who presents for colonoscopy screening. Benefits and risks were described and informed consent was obtained. DESCRIPTION OF PROCEDURE: The patient had undergone Sutab prep. The patient had been brought into the operating room and laid in the left lateral decubitus position. After adequate intravenous sedation, the rectum was examined with 2% lidocaine jelly. No external hemorrhoids were encountered. The rectal tone was within normal limits. No lesions were palpated in the rectal vault. An Olympus colonoscope was advanced until the cecum, ileocecal valve and appendiceal orifice were clearly viewed. The prep was fair. Scattered diverticulosis was encountered. No colonic polyps were found. No evidence of focal colitis was found. Retroflexion of the scope demonstrated grade 1 internal hemorrhoids without active bleeding or inflammation. The colon was desufflated. The patient had tolerated the procedure well. Withdrawal time was over 6 minutes. FINDINGS: Aronchick preparation quality scale 3 (1-5) Internal hemorrhoids, grade 1 No external prolapsed hemorrhoids. No arteriovenous malformations. No adenomatous polyps. No focal colitis. RECOMMENDATIONS: Lower endoscopy in 5 years, 2027 Recommend additional day for a colon prep, at least 2 days. Plan - Discharge Summary Discharge Rx Participant: No New Discharge Prescriptions: Continue Atorvastatin [Lipitor] 10 mg PO DAILY Gabapentin 800 mg PO TID Finasteride [Proscar] 5 mg PO HS Teriflunomide [Aubagio] 14 mg PO W/LUNCH Tamsulosin [Flomax] 0.4 mg PO DAILY #5 cap Simethicone [Gas-X] 125 mg PO AC-TID PRN #20 capsule PRN Reason: Pain Loratadine 10 mg PO DAILY Ibuprofen [Motrin] 800 mg PO Q8H allopurinoL 100 mg PO Q2D Acetaminophen Tab [Tylenol] 1,000 mg PO Q6HR PRN #30 tablet PRN Reason: Pain Cholecalciferol (Vitamin D3) [Vitamin D3] 1,250 mcg PO DAILY Discharge Medication List Atorvastatin [Lipitor] 10 mg PO DAILY 10/01/16 [History] Finasteride [Proscar] 5 mg PO HS 03/08/22 [History] Gabapentin 800 mg PO TID 03/08/22 [History] Ibuprofen [Motrin] 800 mg PO Q8H 03/08/22 [History] Teriflunomide [Aubagio] 14 mg PO W/LUNCH 03/08/22 [History] allopurinoL 100 mg PO Q2D 03/08/22 [History] Acetaminophen Tab [Tylenol] 1,000 mg PO Q6HR PRN #30 tablet 03/11/22 [Rx] Simethicone [Gas-X] 125 mg PO AC-TID PRN #20 capsule 03/11/22 [Rx] Tamsulosin [Flomax] 0.4 mg PO DAILY #5 cap 03/11/22 [Rx] Cholecalciferol (Vitamin D3) [Vitamin D3] 1,250 mcg PO DAILY 03/31/23 [History] Loratadine 10 mg PO DAILY 03/31/23 [History] Follow up Appointment(s)/Referral(s): Tierra Pelaez MD [STAFF PHYSICIAN] - As Needed Patient Instructions/Handouts: *Surgery [facility] - (Anesthesia) Discharge Instructions Outpatient Surgery, Colonoscopy (DC), Diverticulosis Diet (GEN), Diverticulosis (GEN) Activity/Diet/Wound Care/Special Instructions: Follow-up colonoscopy 5 years, 2027 Discharge Disposition: HOME SELF-CARE
== END 2023-04-06 10:52 | disposition home or self-care (01) ==
LOC: ORWHC2ENDO 08:09
PROVIDERS: ATTEND Surgery Plastic and Reconstructive Surgery
DX: Z12.11 Encounter for screening for malignant neoplasm of colon (principal); K57.30 Diverticulosis of large intestine without perforation or abscess without bleeding; K64.0 First degree hemorrhoids; E78.5 Hyperlipidemia, unspecified; G47.33 Obstructive sleep apnea (adult) (pediatric); Z79.899 Other long term (current) drug therapy; Z80.0 Family history of malignant neoplasm of digestive organs; Z90.49 Acquired absence of other specified parts of digestive tract; Z98.890 Other specified postprocedural states
CPT/HCPCS: 45378; J2405; J2001; J3010; J2704

== ENCOUNTER 2024-09-29 18:02 | Inpatient (IN) | payer BC ==
[2024-09-29] MEDS ORDERED: ACETAMINOPHEN TAB 325 MG TAB PO PRN (18:19)
[2024-09-29] MEDS ORDERED: NALOXONE 0.4 MG/ML 1 ML VIAL IV PRN (18:19)
--- NOTE | 2024-09-29 18:23 | ED ---
General Adult HPI - General Chief complaint: Chest Pain Stated complaint: Afib Time Seen by Provider: 09/29/24 18:03 Source: patient, RN notes reviewed, old records reviewed Mode of arrival: EMS Limitations: no limitations - History of Present Illness Initial comments: 53-year-old male presented to outside hospital with palpitation, racing heart sensation. Patient was found to be in atrial fibrillation with rapid ventricular response rate around 170. He was evaluated at outside hospital, started on Cardizem and heparin and ultimately transferred for cardiology consultation. Patient reports of chest discomfort, no specific pain. He did report palpitations which have improved at the time my evaluation. No prior history of A-fib or CAD. - Related Data Home Medications Medication Instructions Recorded Confirmed Atorvastatin [Lipitor] 10 mg PO DAILY 10/01/16 03/31/23 Finasteride [Proscar] 5 mg PO HS 03/08/22 03/31/23 Gabapentin 800 mg PO TID 03/08/22 03/31/23 Ibuprofen [Motrin] 800 mg PO Q8H 03/08/22 04/06/23 Teriflunomide [Aubagio] 14 mg PO W/LUNCH 03/08/22 04/06/23 allopurinoL 100 mg PO Q2D 03/08/22 04/06/23 Cholecalciferol (Vitamin D3) 1,250 mcg PO DAILY 03/31/23 04/06/23 [Vitamin D3 (1250 Mcg = 50,000 Iu)] Loratadine 10 mg PO DAILY 03/31/23 03/31/23 Previous Rx's Medication Instructions Recorded Acetaminophen Tab [Tylenol] 1,000 mg PO Q6HR PRN #30 tablet 03/11/22 Simethicone [Gas-X] 125 mg PO AC-TID PRN #20 capsule 03/11/22 Tamsulosin [Flomax] 0.4 mg PO DAILY #5 cap 03/11/22 Allergies Allergy/AdvReac Type Severity Reaction Status Date / Time No Known Allergies Allergy Verified 09/29/24 18:08 Review of Systems ROS Statement: Those systems with pertinent positive or pertinent negative responses have been documented in the HPI. ROS Other: All systems not noted in ROS Statement are negative. Past Medical History Past Medical History: Hyperlipidemia, Musculoskeletal Disorder, Sleep A pnea/CPAP/BIPAP Additional Past Medical History / Comment(s): ms ,cpap, heart murmur, left side leg weak sometime History of Any Multi-Drug Resistant Organisms: None Reported Past Surgical History: Cholecystectomy, Ear Surgery, Hernia Repair, Orthopedic Surgery Additional Past Surgical History / Comment(s): vascectomy, toe surg, Past Anesthesia/Blood Transfusion Reactions: No Reported Reaction Additional Past Anesthesia/Blood Transfusion Reaction / Comment(s): no blood transfusion Past Psychological History: No Psychological Hx Reported Smoking Status: Never smoker - Past Family History Father Family Medical History: Cancer Additional Family Medical History / Comment(s): pancreatic General Exam Limitations: no limitations General appearance: alert, in no apparent distress Head exam: Present: atraumatic, normocephalic Eye exam: Present: normal appearance, PERRL Neck exam: Present: normal inspection. Absent: tenderness, meningismus Respiratory exam: Present: normal lung sounds bilaterally. Absent: respiratory distress, wheezes Cardiovascular Exam: Present: tachycardia, irregular rhythm GI/Abdominal exam: Present: soft. Absent: distended, tenderness, guarding Extremities exam: Present: normal inspection, normal capillary refill. Absent: pedal edema Neurological exam: Present: alert, oriented X3, CN II-XII intact. Absent: motor sensory deficit Psychiatric exam: Present: normal affect, normal mood Skin exam: Present: warm, dry, intact Course Vital Signs 09/29/24 09/29/24 09/29/24 18:04 18:34 19:26 Temperature 98.3 F Pulse Rate 107 H 121 H 122 H Respiratory 18 18 17 Rate Blood Pressure 103/71 89/62 101/87 O2 Sat by Pulse 97 100 97 Oximetry Medical Decision Making - Medical Decision Making Was pt. sent in by a medical professional or institution (, PA, ADOBE DEVELOPER, urgent care, hospital, or skilled nursing...) When possible be specific @ -Transfer from [facility] Did you speak to anyone other than the patient for history (EMS, parent, family, police, friend...)? What history was obtained from this source @ -No Did you review nursing and triage notes (agree or disagree)? Why? @ -I reviewed and agree with nursing and triage notes Were old charts reviewed (outside hosp., previous admission, EMS record, old EKG, old radiological studies, urgent care reports/EKG's, skilled nursing records)? Report findings @ -No old charts were reviewed Differential Palpitations Ventricular arrhythmias, atrial arrhythmias, myocardial infarction, anemia, thyrotoxicosis, electrolyte imbalance, hypokalemia, pulmonary embolism, pulmonary disease, drugs, alcohol, anxiety, stress.... This is not meant to be an all-inclusive list. EKG interpreted by me (3pts min.). @ -Atrial fibrillation rate of 95, QRS duration 106, QTc 422 X-rays interpreted by me (1pt min.). @ -None done CT interpreted by me (1pt min.). @ -None done U/S interpreted by me (1pt. min.). @ -None done What testing was considered but not performed or refused? (CT, X-rays, U/S, labs)? Why? @ -None What meds were considered but not given or refused? Why? @ -None Did you discuss the management of the patient with other professionals (professionals i.e. , PA, ADOBE DEVELOPER, lab, RT, psych nurse, social media content manager, validation technician, teacher, disbursing officer, registered nurse hh case manager)? Give summary @Case discussed with Dr. Ríos, will admit, Dr. Miller for Cardiology Was smoking cessation discussed for >3mins.? @ -No Was critical care preformed (if so, how long)? @ -[Yes, 35 minutes Were there social determinants of health that impacted care today? How? (Homelessness, low income, unemployed, alcoholism, drug addiction, transportation, low edu. Level, literacy, decrease access to med. care, group home, rehab)? @ -No Was there de-escalation of care discussed even if they declined (Discuss DNR or withdrawal of care, Hospice)? DNR status @ -No What co-morbidities impacted this encounter? (DM, HTN, Smoking, COPD, CAD, Cancer, CVA, ARF, Chemo, Hep., AIDS, mental health diagnosis, sleep apnea, morbid obesity)? @ -None Was patient admitted / discharged? Hospital course, mention meds given and route, prescriptions, significant lab abnormalities, going to OR and other pertinent info. @ -53-year-old male presenting from outside hospital with new onset atrial fibrillation with RVR and troponin elevation. Patient's laboratory testing will be repeated including serial cardiac enzymes. He will be continued on Cardizem and heparin. He will be admitted to a monitored bed with cardiology on consultation. Undiagnosed new problem with uncertain prognosis? @ -No Drug Therapy requiring intensive monitoring for toxicity (Heparin, Nitro, Insulin, Cardizem)? @ -No Were any procedures done? @ -No Diagnosis/symptom? @ -New onset atrial fibrillation with RVR Acute, or Chronic, or Acute on Chronic? @ -Acute Uncomplicated (without systemic symptoms) or Complicated (systemic symptoms)? @ -Default Side effects of treatment? @ -No Exacerbation, Progression, or Severe Exacerbation? @ -No Poses a threat to life or bodily function? How? (Chest pain, [place], [place], pneumonia, PE, COPD, DKA, ARF, appy, cholecystitis, CVA, Diverticulitis, Homicidal, Suicidal, threat to staff... and all critical care pts) @ -[Yes, arrhythmia, cardiogenic shock, ACS - Lab Data Result diagrams: 09/29/24 18:25 Lab Results 09/29/24 09/29/24 09/29/24 Range/Units 18:25 18:25 18:25 WBC 8.75 (4.50-10.00) 10*3/uL RBC 5.17 (4.40-5.60) 10*6/uL Hgb 15.4 (13.0-17.0) g/dL Hct 45.3 (39.6-50.0) % MCV 87.6 (80.0-97.0) fL MCH 29.8 (27.0-32.0) pg MCHC 34.0 (32.0-37.0) g/dL Plt Count 216 (140-440) 10*3/uL MPV 8.7 L (9.5-12.2) fL Immature Gran % (Auto) 1.7 % Neutrophils % 58.9 % Lymphocytes % 27.9 % Monocytes % 7.4 % Eosinophils % 3.0 % Basophils % 1.1 % Immature Gran # 0.15 H (0.00-0.04) 10*3/uL Neutrophils # 5.15 (1.80-7.70) 10*3/uL Lymphocytes # 2.44 (0.90-5.00) 10*3/uL Monocytes # 0.65 (0.20-1.00) 10*3/uL Eosinophils # 0.26 (0.04-0.35) 10*3/uL Basophils # 0.10 (0.00-0.10) 10*3/uL PT 11.2 (10.0-12.5) sec INR 1.0 (<1.2) APTT 31.4 H (22.0-30.0) sec Troponin I 0.152 H* (0.000-0.034) ng/mL Critical Care Time Critical Care Time: Yes Total Critical Care Time: 35 Disposition Clinical Impression: Acute non-ST elevation myocardial infarction (NSTEMI), Atrial fibrillation with rapid ventricular response Disposition: ADMITTED IP TO THIS HOSP Condition: Stable Is patient prescribed a controlled substance at d/c from ED?: No Referrals: Darrell Rodriguez MD [Primary Care Provider] - 1-2 days Time of Disposition: 19:20
[2024-09-29] MEDS: DILTIAZEM 125 MG in DEXTROSE 5% IN WATER 100 ML IV SCH (18:32)
[2024-09-29 18:36] LABS: Basophils % (A) 1.1 %; Eosinophils # (A) 0.26 10*3/uL (0.04-0.35); HCT 45.3 % (39.6-50.0); HGB 15.4 g/dL (13.0-17.0); Lymphocytes # (A) 2.44 10*3/uL (0.90-5.00); Lymphocytes % (A) 27.9 %; MCH 29.8 pg (27.0-32.0); MCV 87.6 fL (80.0-97.0); Mean Platelet Volume 8.7 fL (9.5-12.2); Monocytes # (A) 0.65 10*3/uL (0.20-1.00); Monocytes % (A) 7.4 %; Neutrophils # (A) 5.15 10*3/uL (1.80-7.70); Neutrophils % (A) 58.9 %; Platelet Count 216 10*3/uL (140-440); RBC 5.17 10*6/uL (4.40-5.60); RDW 14.2 % (11.5-14.5); WBC 8.75 10*3/uL (4.50-10.00)
[2024-09-29] MEDS: HEPARIN SOD,PORK IN 0.45% NACL 25,000 UNIT in 0.45% NACL 1 250ML.BAG IV SCH (18:37)
[2024-09-29 18:50] LABS: Partial Thromboplastin Time 31.4 sec (22.0-30.0); Prothrombin Time 11.2 sec (10.0-12.5)
[2024-09-29] MEDS: HEPARIN SODIUM 1,000 UN/ML (10ML VL) IV PRN (19:24)
[2024-09-29] MEDS ORDERED: GABAPENTIN 300 MG CAP PO PRN (21:49)
[2024-09-30 05:44] LABS: Basophils # (A) 0.08 10*3/uL (0.00-0.10); Eosinophils # (A) 0.17 10*3/uL (0.04-0.35); Eosinophils % (A) 2.2 %; HCT 46.4 % (39.6-50.0); HGB 15.8 g/dL (13.0-17.0); Lymphocytes # (A) 2.36 10*3/uL (0.90-5.00); Lymphocytes % (A) 29.9 %; MCH 29.8 pg (27.0-32.0); MCHC 34.1 g/dL (32.0-37.0); MCV 87.4 fL (80.0-97.0); Monocytes # (A) 0.61 10*3/uL (0.20-1.00); Monocytes % (A) 7.7 %; Neutrophils # (A) 4.56 10*3/uL (1.80-7.70); Neutrophils % (A) 57.7 %; Platelet Count 201 10*3/uL (140-440); RBC 5.31 10*6/uL (4.40-5.60); RDW 14.4 % (11.5-14.5)
[2024-09-30 06:02] LABS: INR 1.1 (<1.2); Partial Thromboplastin Time 58.7 sec (22.0-30.0); Prothrombin Time 11.9 sec (10.0-12.5)
[2024-09-30 06:28] LABS: African American GFR (CKD) >90 (>60 ml/min/1.73 sqM); Anion Gap 10 mmol/L; Blood Urea Nitrogen 17 mg/dL (9-20); Calcium 9.3 mg/dL (8.4-10.2); Carbon Dioxide 25 mmol/L (22-30); Chloride 105 mmol/L (98-107); Glucose 102 mg/dL (74-99); Non-African American GFR(CKD) >90 (>60 ml/min/1.73 sqM); Potassium 3.6 mmol/L (3.5-5.1); Sodium 140 mmol/L (137-145)
--- NOTE | 2024-09-30 08:50 | P.HPIM ---
History of Present Illness H&P Date: 09/29/24 Chief Complaint: Chest pain/palpitation Patient seen and evaluated in ED on 09/29/2024 with family at bedside; patient's charting inadvertently missed 53-year-old male, history of MS, hyperlipidemia, neuropathy, hyperuricemia/gout, BPH, presented to outside hospital with palpitation, racing heart sensation. Patient was found to be in atrial fibrillation with rapid ventricular response rate around 170. He was evaluated at outside hospital, started on Cardizem and heparin and ultimately transferred for cardiology consultation. Patient reports of chest discomfort, no specific pain. He did report palpitations which have improved at the time my evaluation. No prior history of A-fib or CAD. Blood work completed reveals WBC of 8.75, hemoglobin of 15.4 and platelet count of 216, troponin elevated at 0.152 EKG reveals atrial fibrillation with heart rate in 90s on IV Cardizem infusion started in outside facility - Plan of care discussed with patient and family at bedside Review of Systems REVIEW OF SYSTEMS: CONSTITUTIONAL: No fever, no malaise, no fatigue. HEENT: No recent visual problems or hearing problems. Denied any sore throat. CARDIOVASCULAR: No chest pain, orthopnea, PND, no palpitations, no syncope. PULMONARY: No shortness of breath, no cough, no hemoptysis. GASTROINTESTINAL: No diarrhea, no nausea, no vomiting, no abdominal pain. NEUROLOGICAL: No headaches, no weakness, no numbness. HEMATOLOGICAL: Denies any bleeding or petechiae. GENITOURINARY: Denies any burning micturition, frequency, or urgency. MUSCULOSKELETAL/RHEUMATOLOGICAL: Denies any joint pain, swelling, or any muscle pain. ENDOCRINE: Denies any polyuria or polydipsia. The rest of the 14-point review of systems is negative. Past Medical History Past Medical History: Hyperlipidemia, Musculoskeletal Disorder, Sleep Apnea/CPAP/BIPAP Additional Past Medical History / Comment(s): ms ,cpap, heart murmur, left side leg weak sometime History of Any Multi-Drug Resistant Organisms: None Reported Past Surgical History: Cholecystectomy, Ear Surgery, Hernia Repair, Orthopedic Surgery Additional Past Surgical History / Comment(s): vascectomy, toe surg, Past Anesthesia/Blood Transfusion Reactions: No Reported Reaction Additional Past Anesthesia/Blood Transfusion Reaction / Comment(s): no blood transfusion Past Psychological History: No Psychological Hx Reported Smoking Status: Never smoker - Past Family History Father Family Medical History: Cancer Additional Family Medical History / Comment(s): pancreatic Medications and Allergies Home Medications Medication Instructions Recorded Confirmed Type Teriflunomide [Aubagio] 14 mg PO DAILY@1400 03/08/22 09/29/24 History allopurinoL 100 mg PO HS 03/08/22 09/29/24 History Loratadine 10 mg PO DAILY 03/31/23 09/29/24 History Atorvastatin [Lipitor] 40 mg PO DAILY 09/29/24 09/29/24 History Gabapentin 300 mg PO AC-TID 09/29/24 09/29/24 History Gabapentin [Neurontin] 300 mg PO HS PRN 09/29/24 09/29/24 History Phentermine HCl [Adipex-P] 37.5 mg PO AC-BRKFST 09/29/24 09/29/24 History Sildenafil [Revatio] 20 - 100 mg PO DAILY PRN 09/29/24 09/29/24 History Solifenacin Succinate 10 mg PO HS 09/29/24 09/29/24 History Tamsulosin [Flomax] 0.4 mg PO HS 09/29/24 09/29/24 History Vitamin D3(Unknown Dose) 1 tab PO BID@0630,1200 09/29/24 09/29/24 History Allergies Allergy/AdvReac Type Severity Reaction Status Date / Time No Known Allergies Allergy Verified 09/29/24 20:09 Physical Exam Vitals: Vital Signs Temp Pulse Resp BP Pulse Ox 09/30/24 07:49 93 18 103/75 98 09/30/24 06:04 104 H 18 104/55 97 09/30/24 04:00 98 20 102/78 97 09/30/24 01:48 107 H 18 99/67 98 09/29/24 19:26 122 H 17 101/87 97 09/29/24 18:34 121 H 18 89/62 100 09/29/24 18:04 98.3 F 107 H 18 103/71 97 Intake and Output 09/29/24 09/30/24 09/30/24 22:59 06:59 14:59 Intake Total 10.083 84.6 119.917 Balance 10.083 84.6 119.917 Intake: Intake, IV Titration 10.083 84.6 119.917 Amount Diltiazem 125 mg In 5.083 119.917 Dextrose 5% in Water 100 ml @ 5 MG/HR 5 mls/hr IV .Q24H [facility] Rx#:[id number] Heparin Sod,Pork in 0.45% 5 84.6 NaCl 25,000 unit In 0.45 % NaCl 1 250ml.bag @ 7. 7355 UNITS/KG/HR 10 mls/ hr IV .Q24H [facility] Rx#: [id number] Other: Weight 129.274 kg General appearance: alert, in no apparent distress Head exam: Present: atraumatic, normocephalic Eye exam: Present: normal appearance, PERRL Neck exam: Present: normal inspection. Absent: tenderness, meningismus Respiratory exam: Present: normal lung sounds bilaterally. Absent: respiratory distress, wheezes Cardiovascular Exam: Present: tachycardia, irregular rhythm GI/Abdominal exam: Present: soft. Absent: distended, tenderness, guarding Extremities exam: Present: normal inspection, normal capillary refill. Absent: pedal edema Neurological exam: Present: alert, oriented X3, CN II-XII intact. Absent: motor sensory deficit Psychiatric exam: Present: normal affect, normal mood Skin exam: Present: warm, dry, intact Results CBC & Chem 7: 09/30/24 05:19 09/30/24 05:19 Labs: Abnormal Lab Results - Last 24 Hours (Table) 09/29/24 09/29/24 09/29/24 Range/Units 18:25 18:25 18:25 MPV 8.7 L (9.5-12.2) fL Immature Gran # 0.15 H (0.00-0.04) 10*3/uL APTT 31.4 H (22.0-30.0) sec Glucose (74-99) mg/dL Troponin I 0.152 H* (0.000-0.034) ng/mL 09/30/24 09/30/24 09/30/24 Range/Units 00:41 01:45 04:31 MPV (9.5-12.2) fL Immature Gran # (0.00-0.04) 10*3/uL APTT 38.3 H (22.0-30.0) sec Glucose (74-99) mg/dL Troponin I 0.108 H* 0.085 H* (0.000-0.034) ng/mL 09/30/24 09/30/24 09/30/24 Range/Units 05:19 05:19 05:19 MPV 9.0 L (9.5-12.2) fL Immature Gran # 0.12 H (0.00-0.04) 10*3/uL APTT 58.7 H (22.0-30.0) sec Glucose 102 H (74-99) mg/dL Troponin I (0.000-0.034) ng/mL Assessment and Plan Assessment: 1. New onset atrial fibrillation with RVR -Patient is currently on IV heparin and Cardizem infusion; will titrate keeping heart rate less than 110 - Will order electrolytes and thyroid profile - Recommend 2D echo; cardiology is consulted 2. Elevated troponin; initial troponin is elevated at 0.152; possibly rate related - Patient will remain on telemetry; will monitor EKG and trend troponin; remains on IV heparin - 2D echo - Cardiology consulted; appreciate input 3. Hyperlipidemia; Lipitor 10 mg daily 4. Vitamin D deficiency; continue with home supplement 5. MS/neuropathy; patient takes teriflunomide 14 mg daily; Neurontin 800 mg 3 times daily 6. Hyperuricemia/gout; allopurinol 100 mg every 2 days DVT prophylax; SCDs CODE STATUS; full code
[2024-09-30] MEDS: ATORVASTATIN 40 MG TAB PO SCH (10:17)
[2024-09-30] MEDS: LORATADINE 10 MG TAB PO SCH (10:17)
[2024-09-30] MEDS: GABAPENTIN 300 MG CAP PO SCH (10:17)
--- NOTE | 2024-09-30 12:57 | P.CRDCN ---
History of Present Illness Consult date: 09/30/24 History of present illness: HISTORY OF PRESENTING ILLNESS: 53-year-old prior history of arrhythmia as a youth multiple sclerosis morbid obesity obstructive sleep apnea presented to the hospital because of symptoms of palpitation that started yesterday after he was camping. On admission to the ER he was noticed to be in atrial fibrillation with RVR. He denied having any symptoms of chest heaviness shortness of breath. Did report significant fatigue lightheadedness and dizziness symptoms. Occasional alcohol use, no drug use marijuana use or smoking Family history heart disease in mother Admission Vitals: BP 104/55, heart rate 120 bpm Admission Labs: Hb 15.4, troponin 0.152, 0.108, 0.085, Admission EKG: Atrial fibrillation RVR, no significant ST-T wave changes REVIEW OF SYSTEMS: 14 point review of system is negative except what is mentioned above in HPI. PHYSICAL EXAMINATION: Neck: Brisk carotid upstroke, no jugular venous distention. Lungs: Clear to auscultation. Heart: Irregularly irregular, S1-S2, , no murmur or rub. Abdomen: Soft nontender, positive bowel sounds. Extremities: No edema, intact distal pulses. Neuro: Alert, oritented, no focal deficits. Detailed neuro exam was not performed. ASSESSMENT: # New onset atrial fibrillation with RVR. With symptoms of palpitation # Elevated troponin, likely type II NSTEMI from demand supply mismatch # History of CHARITO on CPAP # Morbid obesity # History of Adipex use # Multiple sclerosis # Prior history of arrhythmias in his youth. PLAN: [id number] score is low but I will start Eliquis 5 twice daily for anticipated cardioversionin next 24 hours if does not convert with IV Cardizem in next 24 hours. Obtain updated echo Check for NT-proBNP lipids A1c, magnesium Give 2 g magnesium IV Start metoprolol 25 twice daily N.p.o. after midnight for anticipated JEREMI cardioversion tomorrow Outpatient cardiac stress test for elevated troponin Do not resume Adipex on discharge Herbert Miller MD, FACC, RPVI Thank you for allowing [facility] to participate in this patient's care. Feel free to reach out in case of any followup questions. Past Medical History Past Medical History: Hyperlipidemia, Musculoskeletal Disorder, Sleep Apnea /CPAP/BIPAP Additional Past Medical History / Comment(s): ms ,cpap, heart murmur, left side leg weak sometime History of Any Multi-Drug Resistant Organisms: None Reported Past Surgical History: Cholecystectomy, Ear Surgery, Hernia Repair, Orthopedic Surgery Additional Past Surgical History / Comment(s): vascectomy, toe surg, Past Anesthesia/Blood Transfusion Reactions: No Reported Reaction Additional Past Anesthesia/Blood Transfusion Reaction / Comment(s): no blood transfusion Past Psychological History: No Psychological Hx Reported Smoking Status: Never smoker - Past Family History Father Family Medical History: Cancer Additional Family Medical History / Comment(s): pancreatic Medications and Allergies Home Medications Medication Instructions Recorded Confirmed Type Teriflunomide [Aubagio] 14 mg PO DAILY@1400 03/08/22 09/29/24 History allopurinoL 100 mg PO HS 03/08/22 09/29/24 History Loratadine 10 mg PO DAILY 03/31/23 09/29/24 History Atorvastatin [Lipitor] 40 mg PO DAILY 09/29/24 09/29/24 History Gabapentin 300 mg PO AC-TID 09/29/24 09/29/24 History Gabapentin [Neurontin] 300 mg PO HS PRN 09/29/24 09/29/24 History Phentermine HCl [Adipex-P] 37.5 mg PO AC-BRKFST 09/29/24 09/29/24 History Sildenafil [Revatio] 20 - 100 mg PO DAILY PRN 09/29/24 09/29/24 History Solifenacin Succinate 10 mg PO HS 09/29/24 09/29/24 History Tamsulosin [Flomax] 0.4 mg PO HS 09/29/24 09/29/24 History Vitamin D3(Unknown Dose) 1 tab PO BID@0630,1200 09/29/24 09/29/24 History Allergies Allergy/AdvReac Type Severity Reaction Status Date / Time No Known Allergies Allergy Verified 09/29/24 20:09 Physical Exam Vitals: Vital Signs Temp Pulse Resp BP Pulse Ox 09/30/24 10:00 105 H 18 110/72 98 09/30/24 09:00 110 H 18 110/59 98 09/30/24 08:00 110 H 18 105/81 98 09/30/24 07:49 93 18 103/75 98 09/30/24 06:04 104 H 18 104/55 97 09/30/24 04:00 98 20 102/78 97 09/30/24 01:48 107 H 18 99/67 98 09/29/24 19:26 122 H 17 101/87 97 09/29/24 18:34 121 H 18 89/62 100 09/29/24 18:04 98.3 F 107 H 18 103/71 97 Intake and Output 09/29/24 09/30/24 09/30/24 22:59 06:59 14:59 Intake Total 10.083 84.6 119.917 Balance 10.083 84.6 119.917 Intake: Intake, IV Titration 10.083 84.6 119.917 Amount Diltiazem 125 mg In 5.083 119.917 Dextrose 5% in Water 100 ml @ 5 MG/HR 5 mls/hr IV .Q24H [facility] Rx#:[id number] Heparin Sod,Pork in 0.45% 5 84.6 NaCl 25,000 unit In 0.45 % NaCl 1 250ml.bag @ 7. 7355 UNITS/KG/HR 10 mls/ hr IV .Q24H [facility] Rx#: [id number] Other: Weight 129.274 kg Results 09/30/24 05:19 09/30/24 05:19 Cardiac Enzymes 09/29/24 09/30/24 09/30/24 Range/Units 18: 01:45 04:31 Troponin I 0.152 H* 0.108 H* 0.085 H* (0.000-0.034) ng/mL Coagulation 09/29/24 09/30/24 09/30/24 Range/Units 18: 00:41 05:19 PT 11.2 11.9 (10.0-12.5) sec APTT 31.4 H 38.3 H 58.7 H (22.0-30.0) sec CBC 09/29/24 09/30/24 Range/Units 18:25 05:19 WBC 8.75 7.90 (4.50-10.00) 10*3/uL RBC 5.17 5.31 (4.40-5.60) 10*6/uL Hgb 15.4 15.8 (13.0-17.0) g/dL Hct 45.3 46.4 (39.6-50.0) % Plt Count 216 201 (140-440) 10*3/uL Comprehensive Metabolic Panel 09/30/24 Range/Units 05:19 Sodium 140 (137-145) mmol/L Potassium 3.6 (3.5-5.1) mmol/L Chloride 105 (98-107) mmol/L Carbon Dioxide 25 (22-30) mmol/L BUN 17 (9-20) mg/dL Creatinine 0.78 (0.66-1.25) mg/dL Glucose 102 H (74-99) mg/dL Calcium 9.3 (8.4-10.2) mg/dL Current Medications Generic Name Dose Route Start Last Admin Trade Name Freq PRN Reason Stop Dose Admin Acetaminophen 650 mg 09/29/24 18:19 Acetaminophen Tab 325 Mg Tab PO Q6HR PRN Mild Pain or Fever > 100.5 Allopurinol 100 mg 09/30/24 21:00 Allopurinol 100 Mg Tab PO HS [facility] Apixaban 5 mg 09/30/24 13:00 Apixaban 5 Mg Tab PO BID [facility] Protocol Atorvastatin Calcium 40 mg 09/30/24 09:00 09/30/24 10:17 Atorvastatin 40 Mg Tab PO 40 mg DAILY [facility] Administration Gabapentin 300 mg 09/30/24 07:30 09/30/24 12:11 Gabapentin 300 Mg Cap PO 300 mg AC-TID [facility] Administration Gabapentin 300 mg 09/29/24 21:49 Gabapentin 300 Mg Cap PO HS PRN Pain Heparin Sodium (Porcine) 0 unit 09/29/24 18:11 09/30/24 02:09 Heparin Sodium 1,000 Un/Ml (10ml Vl) IV 3,231.75 unit PER PROTOCOL PRN Administration Low PTT Protocol Heparin Sodium/Sodium Chloride 250 mls @ 10 mls/hr 09/29/24 18:15 09/30/24 02:10 25,000 unit/ Sodium Chloride IV 11.28 units/kg/hr .Q24H [facility] 14.582 mls/hr Titration Protocol 7.7355 UNITS/KG/HR Diltiazem HCl 125 mg/ Dextrose 125 mls @ 5 mls/hr 09/29/24 18:15 09/30/24 07:43 /Water IV 10 mg/hr .Q24H [facility] 10 mls/hr Administration Protocol 5 MG/HR Magnesium Sulfate/Dextrose 1 100 mls @ 100 mls/hr 09/30/24 13:00 gm/ IV Solution IVPB 09/30/24 14:59 Q1H [facility] Loratadine 10 mg 09/30/24 09:00 09/30/24 10:17 Loratadine 10 Mg Tab PO 10 mg DAILY [facility] Administration Metoprolol Tartrate 25 mg 09/30/24 13:00 Metoprolol Tartrate 25 Mg Tab PO BID [facility] Naloxone HCl 0.2 mg 09/29/24 18:19 Naloxone 0.4 Mg/Ml 1 Ml Vial IV Q2M PRN Opioid Reversal Aubagio ( 1 each 09/30/24 14:00 Teriflunomide) 14 Mg PO Tablet DAILY@1400 [facility] Tamsulosin HCl 0.4 mg 09/30/24 21:00 Tamsulosin 0.4 Mg Cap.Er.24h PO HS [facility] Intake and Output 09/29/24 09/30/24 09/30/24 22:59 06:59 14:59 Intake Total 10.083 84.6 119.917 Balance 10.083 84.6 119.917 Intake: Intake, IV Titration 10.083 84.6 119.917 Amount Diltiazem 125 mg In 5.083 119.917 Dextrose 5% in Water 100 ml @ 5 MG/HR 5 mls/hr IV .Q24H [facility] Rx#:[id number] Heparin Sod,Pork in 0.45% 5 84.6 NaCl 25,000 unit In 0.45 % NaCl 1 250ml.bag @ 7. 7355 UNITS/KG/HR 10 mls/ hr IV .Q24H [facility] Rx#: [id number] Other: Weight 129.274 kg 09/30/24 05:19 09/30/24 05:19
[2024-09-30 13:49] LABS: Magnesium 2.1 mg/dL (1.6-2.3)
[2024-09-30 13:59] LABS: NT-Pro-B-Type Natriuretic Pept 528 pg/mL
[2024-09-30] MEDS: METOPROLOL TARTRATE 25 MG TAB PO SCH (14:20)
[2024-09-30] MEDS: APIXABAN 5 MG TAB PO SCH (14:20)
[2024-09-30] MEDS: MAGNESIUM SULFATE-D5W PMX 1 GM in DEXTROSE/WATER 1 100ML.BAG IVPB SCH (14:21)
--- NOTE | 2024-09-30 17:33 | P.PN ---
Subjective Progress Note Date: 09/30/24 53-year-old male, history of MS, hyperlipidemia, neuropathy, hyperuricemia/gout, BPH, presented to outside hospital with palpitation, racing heart sensation. Patient was found to be in atrial fibrillation with rapid ventricular response rate around 170. He was evaluated at outside hospital, started on Cardizem and heparin and ultimately transferred for cardiology consultation. Patient reports of chest discomfort, no specific pain. He did report palpitations which have improved at the time my evaluation. No prior history of A-fib or CAD. Blood work completed reveals WBC of 8.75, hemoglobin of 15.4 and platelet count of 216, troponin elevated at 0.152 EKG reveals atrial fibrillation with heart rate in 90s on IV Cardizem infusion started in outside facility - Plan of care discussed with patient and family at bedside Patient has been evaluated by cardiology; plan is to continue with rate control strategy and patient will be placed on Eliquis 5 mg daily; plan is possible cardioversion if patient does not convert to NSR with IV Cardizem infusion in next 24 hours Objective - Vital Signs Vital signs: Vital Signs Temp 98.3 F 09/29/24 18:04 Pulse 93 09/30/24 07:49 Resp 18 09/30/24 07:49 BP 103/75 09/30/24 07:49 Pulse Ox 98 09/30/24 07:49 FiO2 Intake & Output 09/29/24 09/30/24 09/30/24 18:59 06:59 18:59 Intake Total 94.683 119.917 Balance 94.683 119.917 Weight 129.274 kg Intake: Intake, IV Titration 94.683 119.917 Amount Diltiazem 125 mg In 5.083 119.917 Dextrose 5% in Water 100 ml @ 5 MG/HR 5 mls/hr IV .Q24H [facility] Rx#:[id number] Heparin Sod,Pork in 0.45% 89.6 NaCl 25,000 unit In 0.45 % NaCl 1 250ml.bag @ 7. 7355 UNITS/KG/HR 10 mls/ hr IV .Q24H [facility] Rx#: [id number] - Exam General appearance: alert, in no apparent distress Head exam: Present: atraumatic, normocephalic Eye exam: Present: normal appearance, PERRL Neck exam: Present: normal inspection. Absent: tenderness, meningismus Respiratory exam: Present: normal lung sounds bilaterally. Absent: respiratory distress, wheezes Cardiovascular Exam: Present: tachycardia, irregular rhythm GI/Abdominal exam: Present: soft. Absent: distended, tenderness, guarding Extremities exam: Present: normal inspection, normal capillary refill. Absent: pedal edema Neurological exam: Present: alert, oriented X3, CN II-XII intact. Absent: motor sensory deficit Psychiatric exam: Present: normal affect, normal mood Skin exam: Present: warm, dry, intact - Labs CBC & Chem 7: 09/30/24 05:19 09/30/24 05:19 Labs: Abnormal Lab Results - Last 24 Hours (Table) 09/29/24 09/29/24 09/29/24 Range/Units 18:25 18:25 18:25 MPV 8.7 L (9.5-12.2) fL Immature Gran # 0.15 H (0.00-0.04) 10*3/uL APTT 31.4 H (22.0-30.0) sec Glucose (74-99) mg/dL Troponin I 0.152 H* (0.000-0.034) ng/mL 09/30/24 09/30/24 09/30/24 Range/Units 00:41 01:45 04:31 MPV (9.5-12.2) fL Immature Gran # (0.00-0.04) 10*3/uL APTT 38.3 H (22.0-30.0) sec Glucose (74-99) mg/dL Troponin I 0.108 H* 0.085 H* (0.000-0.034) ng/mL 09/30/24 09/30/24 09/30/24 Range/Units 05:19 05:19 05:19 MPV 9.0 L (9.5-12.2) fL Immature Gran # 0.12 H (0.00-0.04) 10*3/uL APTT 58.7 H (22.0-30.0) sec Glucose 102 H (74-99) mg/dL Troponin I (0.000-0.034) ng/mL Assessment and Plan Assessment: 1. New onset atrial fibrillation with RVR -Patient is currently on IV heparin and Cardizem infusion; will titrate keeping heart rate less than 110 - Will order electrolytes and thyroid profile - Recommend 2D echo; cardiology is consulted 2. Elevated troponin; initial troponin is elevated at 0.152; possibly rate related - Patient will remain on telemetry; will monitor EKG and trend troponin; remains on IV heparin - 2D echo - Cardiology consulted; appreciate input 3. Hyperlipidemia; Lipitor 10 mg daily 4. Vitamin D deficiency; continue with home supplement 5. MS/neuropathy; patient takes teriflunomide 14 mg daily; Neurontin 800 mg 3 times daily 6. Hyperuricemia/gout; allopurinol 100 mg every 2 days DVT prophylax; SCDs CODE STATUS; full code
[2024-09-30] MEDS: TAMSULOSIN 0.4 MG CAP.ER.24H PO SCH (21:01)
[2024-09-30] MEDS: allopurinoL 100 MG TAB PO SCH (21:02)
[2024-10-01 00:12] LABS: Chol/HDL Ratio 5.24 Ratio; LDL Cholesterol,Calculated 52.9 mg/dL (0.0-131.0)
[2024-10-01 07:33] LABS: African American GFR (CKD) >90 (>60 ml/min/1.73 sqM); Anion Gap 7 mmol/L; Blood Urea Nitrogen 22 mg/dL (9-20); Carbon Dioxide 26 mmol/L (22-30); Chloride 107 mmol/L (98-107); Glucose 116 mg/dL (74-99); Non-African American GFR(CKD) >90 (>60 ml/min/1.73 sqM); Sodium 140 mmol/L (137-145)
--- NOTE | 2024-10-01 08:45 | P.PN ---
Subjective 53-year-old male, history of MS, hyperlipidemia, neuropathy, hyperuricemia/gout, BPH, presented to outside hospital with palpitation, racing heart sensation. Patient was found to be in atrial fibrillation with rapid ventricular response rate around 170. He was evaluated at outside hospital, started on Cardizem and heparin and ultimately transferred for cardiology consultation. Patient reports of chest discomfort, no specific pain. He did report palpitations which have improved at the time my evaluation. No prior history of A-fib or CAD. Blood work completed reveals WBC of 8.75, hemoglobin of 15.4 and platelet count of 216, troponin elevated at 0.152 EKG reveals atrial fibrillation with heart rate in 90s on IV Cardizem infusion started in outside facility - Plan of care discussed with patient and family at bedside Patient has been evaluated by cardiology; plan is to continue with rate control strategy and patient will be placed on Eliquis 5 mg daily; plan is possible cardioversion if patient does not convert to NSR with IV Cardizem infusion in next 24 hours 10/01 This is a pleasant 53 years old male who presents to [facility] at the thumb before he transferred to this facility with palpitation associated with some dizziness now much improved He denies chest pain or dyspnea Patient was found with A-fib with RVR with elevated troponin, evaluated by inspector printed circuit boards he remains on Cardizem drip. He denies any abdominal pain vomiting diarrhea, no urinary symptoms. No weakness or numbness. He is denying smoking alcohol or illicit drugs Objective - Vital Signs Vital signs: Vital Signs Temp 97.7 F 10/01/24 06:00 Pulse 115 H 10/01/24 06:00 Resp 18 10/01/24 06:00 BP 108/72 10/01/24 06:00 Pulse Ox 98 10/01/24 06:00 FiO2 Intake & Output 09/30/24 10/01/24 10/01/24 18:59 06:59 18:59 Intake Total 119.917 125 Balance 119.917 125 Intake: Intake, IV Titration 119.917 125 Amount Diltiazem 125 mg In 119.917 125 Dextrose 5% in Water 100 ml @ 5 MG/HR 5 mls/hr IV .Q24H [facility] Rx#:[id number] - Exam GENERAL: The patient is alert and oriented x3, not in any acute distress. Well developed, well nourished. HEENT: Pupils are round and equally reacting to light. EOMI. No scleral icterus. No conjunctival pallor. Normocephalic, atraumatic. No pharyngeal erythema. No thyromegaly. CARDIOVASCULAR: S1 and S2 present. No murmurs, rubs, or gallops. PULMONARY: Chest is clear to auscultation, no wheezing , no crackles. ABDOMEN: Soft, nontender, nondistended, normoactive bowel sounds. No palpable organomegaly. MUSCULOSKELETAL: No joint swelling or deformity. EXTREMITIES: No cyanosis, clubbing, or pedal edema. NEUROLOGICAL: Gross neurological examination did not reveal any focal deficits. SKIN: No rashes. no petechiae. - Labs CBC & Chem 7: 09/30/24 05:19 10/01/24 06:55 Labs: Abnormal Lab Results - Last 24 Hours (Table) 09/30/24 10/01/24 Range/Units 05:19 06:55 BUN 22 H (9-20) mg/dL Glucose 116 H (74-99) mg/dL Triglycerides 314.00 H (0.00-149.00) mg/dL VLDL Cholesterol, Calc 62.80 H (5.00-40.00) mg/dL HDL Cholesterol 27.30 L (40.00-60.00) mg/dL Assessment and Plan Assessment: 1. New onset atrial fibrillation with RVR -Patient is currently on IV heparin and Cardizem infusion; will titrate keeping heart rate less than 110 - Will order electrolytes and thyroid profile - Recommend 2D echo; cardiology is consulted 2. Elevated troponin; initial troponin is elevated at 0.152; possibly rate related - Patient will remain on telemetry; will monitor EKG and trend troponin; remains on IV heparin - 2D echo - Cardiology consulted; appreciate input 3. Hyperlipidemia; Lipitor 10 mg daily 4. Vitamin D deficiency; continue with home supplement 5. MS/neuropathy; patient takes teriflunomide 14 mg daily; Neurontin 800 mg 3 times daily 6. Hyperuricemia/gout; allopurinol 100 mg every 2 days DVT prophylax; SCDs CODE STATUS; full code
[2024-10-01] MEDS ORDERED: MIDAZOLAM 2 MG/2 ML VIAL IV PRN (09:53)
[2024-10-01] MEDS ORDERED: fentaNYL (PF) 50 MCG/ML 2 ML AMP IVP PRN (09:53)
--- NOTE | 2024-10-01 11:07 | P.PN ---
Subjective HISTORY OF PRESENT ILLNESS: This a 53-year-old male who follows in the office with Dr. Rubio. Patient presented to the hospital for chief complaint of palpitations. He was found to be in atrial fibrillation with RVR. He remains in atrial fibrillation this morning with heart rate in the 90s. He is currently on IV Cardizem at 10 mg an hour. He denies chest pain or pressure. He denies shortness of breath. PHYSICAL EXAM: VITAL SIGNS: Reviewed. GENERAL: Well-developed in no acute distress. NECK: Supple. No JVD or thyromegaly LUNGS: Respirations even and unlabored. Lungs essentially clear to auscultation bilaterally. HEART: Irregular rate and rhythm. S1 and S2 heard. EXTREMITIES: Normal range of motion. No clubbing or cyanosis. Peripheral pulses intact. No lower extremity edema ASSESSMENT: Palpitations New onset atrial fibrillation with RVR Elevated troponin, likely type II MO secondary to oxygen supply and demand mismatch History of obstructive sleep apnea with CPAP use History of Adipex use Multiple sclerosis Obesity: BMI 36.6 Prior history of arrhythmia in his youth, specific arrhythmia unknown PLAN: 2D echo ordered. Await results. Continue IV Cardizem. Currently at 10 mg an hour. Wean to 5 mg an hour. Increase metoprolol tartrate to 50 mg twice daily Continue anticoagulation with Eliquis Patient was initially scheduled for JEREMI and cardioversion today. However due to scheduling conflicts and staff shortages, this will be rescheduled for tomorrow with Dr. Rubio N.p.o. at midnight Further recommendations pending patient course Nurse practitioner note has been reviewed by physician. Signing provider agrees with the documented findings, assessment, and plan of care documented by BOOK CRITIC as a scribe. Objective - Vital Signs Vital signs: Vital Signs Temp 97.7 F 10/01/24 06:00 Pulse 115 H 10/01/24 06:00 Resp 18 10/01/24 06:00 BP 108/72 10/01/24 06:00 Pulse Ox 98 10/01/24 06:00 FiO2 Intake & Output 09/30/24 10/01/24 10/01/24 18:59 06:59 18:59 Intake Total 119.917 125 Balance 119.917 125 Intake: Intake, IV Titration 119.917 125 Amount Diltiazem 125 mg In 119.917 125 Dextrose 5% in Water 100 ml @ 5 MG/HR 5 mls/hr IV .Q24H [facility] Rx#:[id number] - Labs CBC & Chem 7: 09/30/24 05:19 10/01/24 06:55 Labs: Abnormal Lab Results - Last 24 Hours (Table) 09/30/24 10/01/24 Range/Units 05:19 06:55 BUN 22 H (9-20) mg/dL Glucose 116 H (74-99) mg/dL Triglycerides 314.00 H (0.00-149.00) mg/dL VLDL Cholesterol, Calc 62.80 H (5.00-40.00) mg/dL HDL Cholesterol 27.30 L (40.00-60.00) mg/dL
[2024-10-01] MEDS: METOPROLOL TARTRATE 50 MG TAB PO SCH (20:17)
[2024-10-02] MEDS: IV FLUID CONTINUATION 1,000 ML IV ONE ×2 (12:45→13:15)
[2024-10-02] MEDS ORDERED: PROPOFOL 10 MG/ML 20 ML VIAL IV ONE (12:55)
[2024-10-02] MEDS: BENZOCAINE SPRAY 1 EACH TOPICAL STA (13:02)
--- NOTE | 2024-10-02 13:17 | P.PN ---
Subjective HISTORY OF PRESENT ILLNESS: This a 53-year-old male who follows in the office with Dr. Rubio. Patient presented to the hospital for chief complaint of palpitations. He was found to be in atrial fibrillation with RVR. He remains in atrial fibrillation this morning with heart rate in the 90s. He is currently on IV Cardizem at 10 mg an hour. He denies chest pain or pressure. He denies shortness of breath. 10/02/2024 Patient examined this morning at bedside. Patient without complaints of chest pain or shortness of breath. He remains in atrial fibrillation with controlled ventricular rate. He is scheduled for JEREMI and cardioversion today with Dr. Rubio. PHYSICAL EXAM: VITAL SIGNS: Reviewed. GENERAL: Well-developed in no acute distress. NECK: Supple. No JVD or thyromegaly LUNGS: Respirations even and unlabored. Lungs essentially clear to auscultation bilaterally. HEART: Irregular rate and rhythm. S1 and S2 heard. EXTREMITIES: Normal range of motion. No clubbing or cyanosis. Peripheral pulses intact. No lower extremity edema ASSESSMENT: Palpitations New onset atrial fibrillation with RVR Elevated troponin, likely type II PA secondary to oxygen supply and demand mismatch History of obstructive sleep apnea with CPAP use History of Adipex use Multiple sclerosis Obesity: BMI 36.6 Prior history of arrhythmia in his youth, specific arrhythmia unknown PLAN: 2D echo ordered. Await results. Continue metoprolol tartrate Continue Eliquis Patient scheduled for JEREMI and cardioversion today with Dr. Rubio Further recommendations pending patient course Nurse practitioner note has been reviewed by physician. Signing provider agrees with the documented findings, assessment, and plan of care documented by PERMASTONE APPLICATOR as a scribe. Objective - Vital Signs Vital signs: Vital Signs Temp 98.2 F 10/02/24 08:00 Pulse 57 L 10/02/24 12:40 Resp 18 10/02/24 12:40 BP 107/75 10/02/24 12:40 Pulse Ox 97 10/02/24 12:40 FiO2 Intake & Output 10/01/24 10/02/24 10/02/24 18:59 06:59 18:59 Intake Total 125 Balance 125 Weight 125.4 kg Intake: Intake, IV Titration 125 Amount Diltiazem 125 mg In 125 Dextrose 5% in Water 100 ml @ 5 MG/HR 5 mls/hr IV .Q24H [facility] Rx#:[id number] Other: Voiding Method Self-Catheterization Self-Catheterization # Voids 2 - Labs CBC & Chem 7: 09/30/24 05:19 10/01/24 06:55
--- NOTE | 2024-10-02 13:17 | P.PCN ---
Date of Procedure: 10/02/24 Description of Procedure: Indication: Atrial fibrillation Procedure Description: After explaining the procedure to the patient, it's risk and complications, blood pressure, heart rate and O2 saturation were monitored. The throat was sprayed with Cetacaine. Patient received sedation per anesthesia department . The probe was introduced into the esophagus without difficulty. Images were obtained. Following that, the probe was removed. There was no immediate complication. Findings: Left atrial size is normal. Left atrial appendage is normal. Left ventricular size and systolic function are normal. The mitral valve is mildly redundant. The aortic valve is a bicuspid valve with preserved opening and calcification. The tricuspid valve is normal. Descending thoracic aorta appears to be normal. No pericardial effusion was noted. Contrast bubble study revealed no shunting across the interatrial septum. Doppler: Pulse wave and color Doppler were obtained, and revealed mild mitral and tricuspid regurgitation. There was no shunting by color Doppler study. Conclusion: 1. Normal left atrial appendage appearance 2. Normal left ventricular size and systolic function 3. Bicuspid aortic valve with preserved opening 4. Mild mitral and tricuspid regurgitation 5. No pericardial effusion Cardioversion: After obtaining JEREMI and sedated state a synchronized biphasic cardioversion using 150 J was performed with protestant of sinus mechanism. There was no immediate complications.
[2024-10-02] MEDS: SODIUM CHLORIDE 0.9% 1,000 ML IV SCH (14:18)
--- NOTE | 2024-10-02 22:39 | P.PN ---
Subjective 53-year-old male, history of MS, hyperlipidemia, neuropathy, hyperuricemia/gout, BPH, presented to outside hospital with palpitation, racing heart sensation. Patient was found to be in atrial fibrillation with rapid ventricular response rate around 170. He was evaluated at outside hospital, started on Cardizem and heparin and ultimately transferred for cardiology consultation. Patient reports of chest discomfort, no specific pain. He did report palpitations which have improved at the time my evaluation. No prior history of A-fib or CAD. Blood work completed reveals WBC of 8.75, hemoglobin of 15.4 and platelet count of 216, troponin elevated at 0.152 EKG reveals atrial fibrillation with heart rate in 90s on IV Cardizem infusion started in outside facility - Plan of care discussed with patient and family at bedside Patient has been evaluated by cardiology; plan is to continue with rate control strategy and patient will be placed on Eliquis 5 mg daily; plan is possible cardioversion if patient does not convert to NSR with IV Cardizem infusion in next 24 hours 10/01 This is a pleasant 53 years old male who [facility] he transferred to this facility with palpitation associated with some dizziness now much improved He denies chest pain or dyspnea Patient was found with A-fib with RVR with elevated troponin, evaluated by clutch specialist he remains on Cardizem drip. He denies any abdominal pain vomiting diarrhea, no urinary symptoms. No weakness or numbness. He is denying smoking alcohol or illicit drugs 10/02 In the morning patient was still on Cardizem drip 10 mg/h Later and he underwent JEREMI and cardioversion successfully converted to sinus rhythm with a rate in 70s. Patient remains asymptomatic no chest pain no dyspnea no other new complaint Patient is started on Eliquis risk-benefit explained. Sent to the pharmacy and check in for co-pay Possible discharge in 24 hours if remains stable subcu to her clutch specialist. Objective - Vital Signs Vital signs: Vital Signs Temp 98.2 F 10/02/24 08:00 Pulse 69 10/02/24 08:00 Resp 18 10/02/24 08:00 BP 109/70 10/02/24 08:00 Pulse Ox 96 10/02/24 08:00 FiO2 Intake & Output 10/01/24 10/02/24 10/02/24 18:59 06:59 18:59 Intake Total 125 Balance 125 Weight 125.4 kg Intake: Intake, IV Titration 125 Amount Diltiazem 125 mg In 125 Dextrose 5% in Water 100 ml @ 5 MG/HR 5 mls/hr IV .Q24H [facility] Rx#:[id number] Other: Voiding Method Self-Catheterization - Exam GENERAL: The patient is alert and oriented x3, not in any acute distress. Well developed, well nourished. HEENT: Pupils are round and equally reacting to light. EOMI. No scleral icterus. No conjunctival pallor. Normocephalic, atraumatic. No pharyngeal erythema. No thyromegaly. CARDIOVASCULAR: S1 and S2 present. No murmurs, rubs, or gallops. PULMONARY: Chest is clear to auscultation, no wheezing , no crackles. ABDOMEN: Soft, nontender, nondistended, normoactive bowel sounds. No palpable organomegaly. MUSCULOSKELETAL: No joint swelling or deformity. EXTREMITIES: No cyanosis, clubbing, or pedal edema. NEUROLOGICAL: Gross neurological examination did not reveal any focal deficits. SKIN: No rashes. no petechiae. - Labs CBC & Chem 7: 09/30/24 05:19 10/01/24 06:55 Assessment and Plan Assessment: 1. New onset atrial fibrillation with RVR, status post cardioversion on 10/02 -Patient is currently on IV heparin and Cardizem infusion; will titrate keeping heart rate less than 110 - Will order electrolytes and thyroid profile - Recommend 2D echo; cardiology is consulted 2. Elevated troponin; initial troponin is elevated at 0.152; possibly rate related - Patient will remain on telemetry; will monitor EKG and trend troponin; remains on IV heparin - 2D echo - Cardiology consulted; appreciate input 3. Hyperlipidemia; Lipitor 10 mg daily 4. Vitamin D deficiency; continue with home supplement 5. MS/neuropathy; patient takes teriflunomide 14 mg daily; Neurontin 800 mg 3 times daily 6. Hyperuricemia/gout; allopurinol 100 mg every 2 days DVT prophylax; SCDs CODE STATUS; full code
[2024-10-03 08:33] VITALS: TEMP 97.8
--- NOTE | 2024-10-03 10:37 | CA ---
Transthoracic Echo Report Name: Leandro Segundo Age: 53 Gender: M : 1970 Exam Date: 10/02/2024 13:27 Exam Location: [facility] Ht (in): 74 Wt (lb): 276 Ordering Physician: Herbert Miller MD ([id number]) Attending/Referring Phys: Gear Roller Indira Blake RDCS Procedure CPT: Indications: atrial fibrillation Cardiac Hx: Technical Quality: Poor Contrast 1: Definity Total Dose (mL): 2 Contrast 2: Total Dose (mL): MEASUREMENTS (Male / Female) Normal Values 2D ECHO LV Diastolic Diameter PLAX 4.8 cm 4.2 - 5.9 / 3.9 - 5.3 cm LV Systolic Diameter PLAX 3.4 cm IVS Diastolic Thickness 0.9 cm 0.6 - 1.0 / 0.6 - 0.9 cm LVPW Diastolic Thickness 1.3 cm 0.6 - 1.0 / 0.6 - 0.9 cm LV Relative Wall Thickness 0.5 RV Internal Dim ED PLAX 2.8 cm LVOT Diameter 2.0 cm LA Systolic Diameter LX 3.5 cm 3.0 - 4.0 / 2.7 - 3.8 cm M-MODE Aortic Root Diameter MM 3.6 cm LA Systolic Diameter MM 3.5 cm LA Ao Ratio MM 1.0 AV Cusp Separation MM 0.8 cm DOPPLER AV Peak Velocity 284.7 cm/s AV Peak Gradient 32.4 mmHg AV Mean Velocity 195.5 cm/s AV Mean Gradient 23.6 mmHg AV Velocity Time Integral 63.8 cm LVOT Peak Velocity 66.5 cm/s LVOT Peak Gradient 1.8 mmHg LVOT Velocity Time Integral 18.4 cm LVOT Stroke Volume 58.0 cm??? LVOT Stroke Volume Index 23.3 ml/m??? LVOT Cardiac Index 1227.8 cm???/min???m??? AV Area Cont Eq vti 0.9 cm??? AV Area Cont Eq pk 0.7 cm??? MV Area PHT 2.5 cm??? Mitral E Point Velocity 64.5 cm/s Mitral A Point Velocity 79.5 cm/s Mitral E to A Ratio 0.8 MV Deceleration Time 305.6 ms TR Peak Velocity 226.5 cm/s TR Peak Gradient 20.5 mmHg FINDINGS Left Ventricle Left ventricular ejection fraction is estimated at 55-60%. Normal left ventricular systolic function with no obvious regional wall motion abnormalities. Left ventricular cavity size normal. Mild concentric left ventricular hypertrophy. Right Ventricle Normal right ventricular size and function. Right ventricular systolic pressure within normal limits. Right Atrium Mild right atrial dilatation. Left Atrium Mild left atrial dilatation. Mitral Valve Structurally normal mitral valve. Trace to mild mitral regurgitation. No mitral stenosis. Aortic Valve Bicuspid aortic valve. Moderate aortic stenosis with a peak gradient of 32 mmHg and a mean gradient of 24 mmHg. Trace aortic regurgitation. Tricuspid Valve Structurally normal tricuspid valve. Mild tricuspid regurgitation. No tricuspid stenosis. Pulmonic Valve Structurally normal pulmonic valve. Trace pulmonic regurgitation. No pulmonic stenosis. Pericardium No pericardial or pleural effusion. Aorta Aorta at upper limits of normal. CONCLUSIONS Normal LV size and systolic function with mild concentric LVH. Probable bicuspid aortic valve with moderate aortic stenosis, mild aortic insufficiency. Minimal mitral and tricuspid insufficiency. No pericardial effusion. No pulmonary hypertension Previewed by: Dr. Meera Jones MD (Electronically Signed) Final Date: 03 October 2024 10:36
--- NOTE | 2024-10-03 10:48 | P.PN ---
Subjective HISTORY OF PRESENT ILLNESS: This a 53-year-old male who follows in the office with Dr. Rubio. Patient presented to the hospital for chief complaint of palpitations. He was found to be in atrial fibrillation with RVR. He remains in atrial fibrillation this morning with heart rate in the 90s. He is currently on IV Cardizem at 10 mg an hour. He denies chest pain or pressure. He denies shortness of breath. 10/02/2024 Patient examined this morning at bedside. Patient without complaints of chest pain or shortness of breath. He remains in atrial fibrillation with controlled ventricular rate. He is scheduled for JEREMI and cardioversion today with Dr. Rubio. 10/03/2024 Patient is status post JEREMI and cardioversion yesterday with Dr. Rubio. Patient is maintaining sinus mechanism this morning. Patient states he is feeling better today. He denies chest pain or shortness of breath. Vital signs are stable. Echocardiogram completed revealing ejection fraction 55 to 60%, mild concentric LVH, moderate aortic stenosis with peak gradient 32 mmHg mean gradient 24 mmHg, trace aortic regurgitation, mild mitral regurgitation PHYSICAL EXAM: VITAL SIGNS: Reviewed. GENERAL: Well-developed in no acute distress. NECK: Supple. No JVD or thyromegaly LUNGS: Respirations even and unlabored. Lungs essentially clear to auscultation bilaterally. HEART: Regular rate and rhythm. S1 and S2 heard. EXTREMITIES: Normal range of motion. No clubbing or cyanosis. Peripheral pulses intact. No lower extremity edema ASSESSMENT: Palpitations New onset atrial fibrillation with RVR Elevated troponin, likely type II LA secondary to oxygen supply and demand mismatch History of obstructive sleep apnea with CPAP use Moderate aortic stenosis History of Adipex use Multiple sclerosis Obesity: BMI 36.6 Prior history of arrhythmia in his youth, specific arrhythmia unknown PLAN: Continue Eliquis, Lipitor, and metoprolol Patient instructed to discontinue Adipex use Patient is stable for discharge home today from a cardiac standpoint Patient to follow-up with Dr. Rubio in the office We will sign off. Please reconsult if needed. Nurse practitioner note has been reviewed by physician. Signing provider agrees with the documented findings, assessment, and plan of care documented by APPLIANCE TESTER as a scribe. Objective - Vital Signs Vital signs: Vital Signs Temp 97.8 F 10/03/24 08:32 Pulse 75 10/03/24 08:32 Resp 16 10/03/24 08:32 BP 109/69 10/03/24 08:32 Pulse Ox 97 10/03/24 08:32 FiO2 Intake & Output 10/02/24 10/03/24 10/03/24 18:59 06:59 18:59 Intake Total 730 Balance 730 Weight 125 kg Intake: IV 250 Oral 480 Other: Voiding Method Self-Catheterization Self-Catheterization Self-Catheterization # Voids 2 1 - Labs CBC & Chem 7: 09/30/24 05:19 10/01/24 06:55
[2024-10-03 12:23] VITALS: BP 101/68; PULSE 72; RESP 18
--- NOTE | 2024-10-04 07:37 | P.DS ---
Providers Date of admission: 09/29/24 18:20 Attending physician: Jihan Collado Primary care physician: Darrell Rodriguez Hospital Course: Diagnoses: 1. New onset atrial fibrillation with RVR, status post cardioversion on 10/02 2. Elevated troponin; initial troponin is elevated at 0.152; secondary to atrial fibrillation 3. Hyperlipidemia 4. Vitamin D deficiency 5. MS/neuropathy 6. Hyperuricemia/gout Hospital course: 53-year-old male, history of MS, hyperlipidemia, neuropathy, hyperuricemia/gout, BPH, presented to outside hospital with palpitation, racing heart sensation. Patient was found to be in atrial fibrillation with rapid ventricular response rate around 170. He was evaluated at outside hospital, started on Cardizem and heparin and ultimately transferred for cardiology consultation. Patient evaluated by cardiology team here in the hospital he was placed on Eliquis blood thinner for prophylaxis and started on metoprolol higher dose at 50 mg twice daily, heart rate still uncontrolled he underwent cardioversion with cardiology team in 10/02, on the discharge day 625 patient feels fine with no chest pain dyspnea heart rate controlled no other new complaint and clothing busheler has cleared patient for discharge Patient is agreeable to be discharged home today I called the pharmacy to find the Eliquis co-pay, they told me it is already delivered and they cannot check the co-pay however a 1 month of free supply is provided for him, I talked to the patient and informed him he needs to follow-up with his PCP and clothing busheler to check for cheaper options like Coumadin within 1 to 2 weeks and he agrees. Risk-benefit and alternative of the plan discussed with patient in details and he is agreeable Problems and management plan were discussed with the patient and he verbalized understanding and acceptance Patient was found stable and can be discharged home in guarded prognosis however he needs follow-up as an outpatient. Patient was instructed to follow up with PCP within one week and patient agrees patient instructed to follow-up with clothing busheler Dr. Rubio in 1 to 2 weeks Physical exam Gen: patient is a AAOx3, no distress CVS: S1-S2, RRR, no murmur Lungs: B/L CTA, no wheezing Abdomen: soft, no distention, no tenderness, positive bowel sounds Extremity: no leg edema or induration Time spent more than 35 minutes Patient Condition at Discharge: Stable Plan - Discharge Summary Discharge Rx Participant: No New Discharge Prescriptions: New Apixaban [Eliquis] 5 mg PO BID #60 tab Metoprolol Tartrate [Lopressor] 50 mg PO BID #60 tab Continue Teriflunomide [Aubagio] 14 mg PO DAILY@1400 Loratadine 10 mg PO DAILY Solifenacin Succinate 10 mg PO HS Tamsulosin [Flomax] 0.4 mg PO HS allopurinoL 100 mg PO HS Gabapentin [Neurontin] 300 mg PO HS PRN PRN Reason: Pain Gabapentin 300 mg PO AC-TID Atorvastatin [Lipitor] 40 mg PO DAILY Vitamin D3(Unknown Dose) 1 tab PO BID@0630,1200 Discontinued Phentermine HCl [Adipex-P] 37.5 mg PO AC-[id number] No Action Sildenafil [Revatio] 20 - 100 mg PO DAILY PRN PRN Reason: E.D. Discharge Medication List Teriflunomide [Aubagio] 14 mg PO DAILY@1400 03/08/22 [History] allopurinoL 100 mg PO HS 03/08/22 [History] Loratadine 10 mg PO DAILY 03/31/23 [History] Atorvastatin [Lipitor] 40 mg PO DAILY 09/29/24 [History] Gabapentin 300 mg PO AC-TID 09/29/24 [History] Gabapentin [Neurontin] 300 mg PO HS PRN 09/29/24 [History] Sildenafil [Revatio] 20 - 100 mg PO DAILY PRN 09/29/24 [History] Solifenacin Succinate 10 mg PO HS 09/29/24 [History] Tamsulosin [Flomax] 0.4 mg PO HS 09/29/24 [History] Vitamin D3(Unknown Dose) 1 tab PO BID@0630,1200 09/29/24 [History] Apixaban [Eliquis] 5 mg PO BID #60 tab 10/02/24 [Rx] Metoprolol Tartrate [Lopressor] 50 mg PO BID #60 tab 10/03/24 [Rx] Follow up Appointment(s)/Referral(s): Melida Rubio MD [STAFF PHYSICIAN] - 1 Week (office will call with follow up appointment ) Darrell Rodriguez MD [Primary Care Provider] - 1-2 days Patient Instructions/Handouts: A-fib (Atrial Fibrillation) (DC) Activity/Diet/Wound Care/Special Instructions: heart healthy diet activity is restricted till you see your doctor Discharge Disposition: HOME SELF-CARE
== END 2024-10-03 15:40 | disposition home or self-care (01) | DRG 282 ==
LOC: EC 18:02 → 3SCARD 18:20
PROVIDERS: ADMIT Hospitalist; ATTEND Hospitalist
PROC: B246ZZ4 Ultrasonography of Right and Left Heart, Transesophageal (ICD-10-PCS; 2024-10-02)
PROC: 5A2204Z Restoration of Cardiac Rhythm, Single (ICD-10-PCS; principal; 2024-10-02 13:00)
DX: I48.91 Unspecified atrial fibrillation (principal); I21.A1 Myocardial infarction type 2; E66.01 Morbid (severe) obesity due to excess calories; G35 Multiple sclerosis; I08.1 Rheumatic disorders of both mitral and tricuspid valves; Z68.36 Body mass index [BMI] 36.0-36.9, adult; G62.9 Polyneuropathy, unspecified; G47.33 Obstructive sleep apnea (adult) (pediatric); E55.9 Vitamin D deficiency, unspecified; E78.5 Hyperlipidemia, unspecified; N40.0 Benign prostatic hyperplasia without lower urinary tract symptoms; M10.9 Gout, unspecified; Z79.899 Other long term (current) drug therapy
CPT/HCPCS: 36415; 80048; 80061; 83036; 83735; 83880; 84443; 84484; 85025; 85610; 85730; 92960; 93005; 93306; 93312; 93320; 93325; 96365; 96366; 96368; 99291